=== PATIENT | male | born 1935 | race African-American/Black ===

== ENCOUNTER 2020-07-19 11:41 | Inpatient (IN) | payer MEDICARE, BC ==
[~2020-07-19] VITALS: Ht 167.6 cm; Wt 91.2 kg
[2020-07-19] MEDS ORDERED: HYDROCHLOROTH12.5 MG ORAL (15:38)
[2020-07-19] MEDS ORDERED: CELEBREX50 M1 ORAL (15:40)
[2020-07-19] MEDS ORDERED: LATANOPROST 0.7.5 ML OP (15:45)
[2020-07-19] MEDS ORDERED: METOPROLOL SUCC25 MG ORAL (15:47)
[2020-07-19 16:00] VITALS: BP 154/85
--- NOTE | 2020-07-19 17:32 | Diagnostic Imaging Report ---
EXAM: US Duplex Bilateral Lower Extremities Veins CLINICAL HISTORY: DVT TECHNIQUE: Real-time duplex ultrasound scan of the bilateral lower extremity veins integrating B-mode two-dimensional vascular structure, Doppler spectral analysis, color flow Doppler imaging and compression. COMPARISON: No relevant prior studies available. FINDINGS: Right deep veins: Unremarkable. No DVT in the right common femoral, femoral, proximal deep femoral or popliteal veins. The veins demonstrate normal color flow, are normally compressible, with normal phasic flow and/or augmentation response. Right superficial veins: Unremarkable. No thrombus in the visualized right great saphenous vein. Left deep veins: Unremarkable. No DVT in the left common femoral, femoral, proximal deep femoral or popliteal veins. The veins demonstrate normal color flow, are normally compressible, with normal phasic flow and/or augmentation response. Left superficial veins: Unremarkable. No thrombus in the visualized left great saphenous vein. Soft tissues: No acute findings. IMPRESSION: No DVT.
[2020-07-19 18:25] LABS: BASOPHILS % (AUTO) 3.4 % (0.0-2.0); EOSINOPHILS % (AUTO) 2.4 % (0.0-3.0); HEMATOCRIT 42.7 % (42.0-52.0); HEMOGLOBIN 13.5 G/DL (14.2-18.0); LYMPHOCYTES % (AUTO) 25.1 % (20.0-45.0); MEAN CORPUSCULAR VOLUME 94 FL (80-99); NEUTROPHILS % (AUTO) 51.2 % (45.0-75.0); PLATELET COUNT 167 K/UL (150-450); RED BLOOD COUNT 4.53 M/UL (4.70-6.10); RED CELL DISTRIBUTION WIDTH 14.7 % (11.6-14.8); WHITE BLOOD COUNT 6.2 K/UL (4.8-10.8)
[2020-07-19 18:37] LABS: ALANINE AMINOTRANSFERASE 30 U/L (12-78); ALBUMIN 3.3 G/DL (3.4-5.0); ALBUMIN/GLOBULIN RATIO 0.9 (1.0-2.7); ALKALINE PHOSPHATASE 68 U/L (46-116); ANION GAP 5 mmol/L (5-15); ASPARTATE AMINO TRANSFERASE 24 U/L (15-37); BILIRUBIN,TOTAL 0.5 MG/DL (0.2-1.0); BLOOD UREA NITROGEN 26 mg/dL (7-18); CALCIUM 9.5 MG/DL (8.5-10.1); CARBON DIOXIDE 30 MMOL/L (21-32); CHLORIDE 103 MMOL/L (98-107); CREATININE 1.2 MG/DL (0.55-1.30); POTASSIUM 3.8 MMOL/L (3.5-5.1); SODIUM 138 MMOL/L (136-145)
[2020-07-19 19:03] LABS: APPEARANCE,URINE SLIGHTLY CLOUDY; BILIRUBIN, URINE NEGATIVE (NEGATIVE); COLOR,URINE PALE YELLOW; GLUCOSE, URINE (UA) NEGATIVE (NEGATIVE); KETONES,URINE NEGATIVE (NEGATIVE); LEUKOCYTE ESTERASE ,URINE 1+ (NEGATIVE); NITRITE,URINE POSITIVE (NEGATIVE); PH,URINE 7 (4.5-8.0); PROTEIN,URINE 2+ (NEGATIVE); UROBILINOGEN,URINE NORMAL MG/DL (0.0-1.0)
[2020-07-19 20:00] VITALS: BP 158/95
[2020-07-19] MEDS: Tamsulosin 0.4mg cap ORAL SCH (21:48)
[2020-07-20] VITALS: BP 151/88
[2020-07-20 04:00] VITALS: BP 135/70
--- NOTE | 2020-07-20 05:14 | Consultation ---
DATE OF CONSULTATION: 07/19/2020 CARDIOLOGY CONSULTATION CONSULTING PHYSICIAN: Xavier Stevens M.D. REQUESTING PHYSICIAN: Amador Marin M.D. REASON: Lower extremity edema. HISTORY OF PRESENT ILLNESS: This 85-year-old male has had progressive swelling of his lower extremities. He has been on diuretics without improvement. He has had some shortness of breath, but not significant in his complaints. He has not had any chest pain. The patient was recently hospitalized at [facility]. He presented with lower extremity weakness, paraparesis, and that was felt to be due to his degenerative disk disease and neuropathy. While he did have an elevated MARLEN, there was no associated signs of rheumatic disease. He was discharged to a correction facility for rehabilitation. Previously, he resided at an assisted living. PAST MEDICAL HISTORY: Notable for hypertension, chronic venous insufficiency, prostate cancer with history of prostatectomy, thoracic and lumbosacral spine disease, paroxysmal atrial fibrillation, hypertensive heart disease, traumatic brain injury, subdural hematoma with status post evacuation. ALLERGIES: None. MEDICATIONS: Reviewed and reconciled. FAMILY HISTORY: Noncontributory. SOCIAL HISTORY: No record of smoking, alcohol, or substance abuse. REVIEW OF SYSTEMS: No fevers or chills. No joint swelling. Improved mobility since his recent hospitalization. No chest pain. No history of abnormal blood clotting. No change in bowel habits. He does have a history of prostate cancer. PHYSICAL EXAMINATION: VITAL SIGNS: Blood pressure 158/95, pulse 88, respirations 18, afebrile, room air oxygen saturation 94 to 97%. Symmetric weakness. No skin breakdown. NECK: Jugular venous pressure is slightly elevated. LUNGS: Diminished breath sounds. No wheezes or rales. CARDIAC: Regular rhythm and rate. Normal S1, S2 with no murmur. ABDOMEN: Soft and nontender. EXTREMITIES: With 2 to 3+ pitting edema bilaterally. LABORATORY AND DIAGNOSTIC DATA: Venous duplex scan negative for DVT. BUN 26, creatinine 1.2, potassium 3.8. Troponin 0. Natriuretic peptide 51. Albumin 3.3. White count 6.2, hemoglobin 13.5. Venous duplex scan was negative for DVT. IMPRESSION: 1. Lower extremity edema. 2. Venous insufficiency. 3. Acute on chronic diastolic congestive heart failure. 4. Chronic low natriuretic peptide, may be due to obesity syndrome. 5. Paroxysmal atrial fibrillation. 6. Hypertension with labile blood pressure. PLAN: 1. Diuresis. 2. DVT prophylaxis. 3. Optimize anti-failure regimen. 4. Natriuretic peptide will not be useful as a marker in this patient's management. 5. We will follow. Xavier Stevens M.D. DR: LEELA JOB#: [id number] CC:
[2020-07-20 08:00] VITALS: BP 136/82
[2020-07-20 08:22] LABS: ALANINE AMINOTRANSFERASE 27 U/L (12-78); ALBUMIN 3.1 G/DL (3.4-5.0); ALBUMIN/GLOBULIN RATIO 0.7 (1.0-2.7); ALKALINE PHOSPHATASE 55 U/L (46-116); ANION GAP 8 mmol/L (5-15); ASPARTATE AMINO TRANSFERASE 26 U/L (15-37); BILIRUBIN,TOTAL 0.6 MG/DL (0.2-1.0); BLOOD UREA NITROGEN 20 mg/dL (7-18); CALCIUM 8.8 MG/DL (8.5-10.1); CARBON DIOXIDE 27 MMOL/L (21-32); CHLORIDE 106 MMOL/L (98-107); CREATININE 1.2 MG/DL (0.55-1.30); POTASSIUM 3.8 MMOL/L (3.5-5.1); SODIUM 141 MMOL/L (136-145)
[2020-07-20] MEDS: Metoprolol Succinate XL 25mg tab ORAL SCH (08:23)
[2020-07-20] MEDS: Aspirin EC 81mg tab ORAL SCH (08:23)
--- NOTE | 2020-07-20 09:20 | Diagnostic Imaging Report ---
EXAM: XR Chest, 1 View CLINICAL HISTORY: COUGH TECHNIQUE: Frontal view of the chest. COMPARISON: No relevant prior studies available. FINDINGS: Lungs: Unremarkable. The lungs appear clear. No focal consolidation. Pleural space: Unremarkable. The costophrenic angles are sharp. No visible pneumothorax. Heart: Cardiac silhouette and ascending aorta appear enlarged, however, may be magnified by portable AP exam technique. Mediastinum: Unremarkable. Bones/joints: Partial visualization of spinal fixation hardware in the cervical spine and separate posterior fixation hardware extending from the lower thoracic spine through the visualized lumbar spine. IMPRESSION: 1. The lungs appear clear. 2. Cardiac silhouette and ascending aorta appear enlarged, however they may be magnified by portable AP exam technique.
[2020-07-20 12:00] VITALS: BP 132/78
--- NOTE | 2020-07-20 12:30 | History and Physical Report ---
DATE OF ADMISSION: 07/19/2020 CHIEF COMPLAINT: CHF and lower extremity edema. HISTORY OF PRESENT ILLNESS: The patient is a pleasant 85-year-old male, well known to me. He has a history of hypertension, BPH, urinary incontinence, chronic kidney disease, who presented with complaints of worsening lower extremity edema. According to the patient's manager of program, he has not been completely compliant with his medications as well as low-salt diet and leg elevation. He had been taking his oral diuretics recently though and had no improvement in his edema and is therefore admitted for further evaluation and care. PAST MEDICAL HISTORY: As above. PAST SURGICAL HISTORY: Includes history of prostatectomy. CURRENT MEDICATIONS: Reconciled and reviewed. ALLERGIES: None. FAMILY HISTORY: None. SOCIAL HISTORY: Negative for tobacco, ethanol, or drugs. REVIEW OF SYSTEMS: GENERAL: No fevers or chills. HEENT: No headaches or visual changes. CARDIOPULMONARY: No chest pain or shortness of breath. GASTROINTESTINAL: No nausea or vomiting. GENITOURINARY: No urgency or frequency. MUSCULOSKELETAL: Positive for lower extremity edema, but no joint pain. NEUROLOGIC: No evidence of seizures. PHYSICAL EXAMINATION: VITAL SIGNS: Temperature 98 degrees, blood pressure 130/76, pulse 80, respirations 20. GENERAL: The patient is well-developed, no apparent distress. HEENT: Head is normocephalic and atraumatic. NECK: Supple. HEART: Regular rate and rhythm. LUNGS: Clear. ABDOMEN: Soft, nontender, nondistended. EXTREMITIES: edema. LABORATORY DATA: Creatinine is 1.2. Venous duplex was negative. Troponin was negative. White count was 6, hemoglobin 13. ASSESSMENT: This is a pleasant male with a history of hypertension, prostatectomy, venous insufficiency, admitted with worsening lower extremity edema secondary to volume overload. PLAN: IV diuretic therapy. Cardiology consultation. Low-salt diet. Leg elevation. Monitor renal function and electrolytes. We will check a bladder ultrasound. Amador Marin M.D. DR: BOYD JOB#: [id number] CC:
[2020-07-20 16:00] VITALS: BP 114/83
[2020-07-20 20:00] VITALS: BP 147/86
[2020-07-20] MEDS: Tamsulosin 0.4mg cap ORAL SCH (21:05)
[2020-07-20] MEDS: Latanoprost 0.005% Opth 2.5ml Soln BOTH EYES SCH (21:05)
[2020-07-20] MEDS: Acetaminophen 500mg (ES) tab ORAL PRN (21:06)
--- NOTE | 2020-07-20 21:25 | Cardiology Progress Note ---
Subjective DATE OF SERVICE: Jul 20, 2020 Still with leg swelling. Not SOB today, but hasn't been OOB. On IV diuretic rx BP parameters have stabilized. Objective Last 24 Hour Vital Signs Date Time Temp Pulse Resp B/P (MAP) Pulse Ox O2 Delivery O2 Flow Rate FiO2 07/20/20 20:00 98.1 87 20 147/86 (106) 99 07/20/20 16:00 98.9 98 20 114/83 (93) 93 07/20/20 12:00 98.0 82 20 132/78 (96) 95 07/20/20 09:00 Room Air 07/20/20 08:23 104 136/82 07/20/20 08:00 98.0 104 20 136/82 (100) 93 07/20/20 04:00 98.4 85 20 135/70 (91) 96 07/20/20 00:00 98.5 86 18 151/88 (109) 94 ROS: unchanged from my evaluation on 07/19/20 HEENT: normal ENT inspection RHYTHM: NSR, ST LUNGS: lungs clear bilaterally, diminished breath sounds CARDIAC: systolic murmur - 1/6 systolic at LLSB, rapid rate, gallop/S4 ABDOMEN: normal bowel sounds, non tender, hepatomegaly EXTREMITIES: moderate edema, pitting edema, +2 edema Laboratory Tests Test 07/20/20 07:00 Sodium Level 141 MMOL/L (136-145) Potassium Level 3.8 MMOL/L (3.5-5.1) Chloride Level 106 MMOL/L (98-107) Carbon Dioxide Level 27 MMOL/L (21-32) Anion Gap 8 mmol/L (5-15) Blood Urea Nitrogen 20 mg/dL (7-18) H Creatinine 1.2 MG/DL (0.55-1.30) Estimat Glomerular Filtration Rate > 60 mL/min (>60) Glucose Level 122 MG/DL (74-106) H Calcium Level 8.8 MG/DL (8.5-10.1) Total Bilirubin 0.6 MG/DL (0.2-1.0) Aspartate Amino Transf (AST/SGOT) 26 U/L (15-37) Alanine Aminotransferase (ALT/SGPT) 27 U/L (12-78) Alkaline Phosphatase 55 U/L (46-116) Total Protein 7.4 G/DL (6.4-8.2) Albumin 3.1 G/DL (3.4-5.0) L Globulin 4.3 g/dL Albumin/Globulin Ratio 0.7 (1.0-2.7) L Thyroid Stimulating Hormone (TSH) 1.337 uiU/mL (0.358-3.740) Microbiology Date/Time Source Procedure Growth Status 07/19/20 18:25 Nasopharynx SARS-CoV-2 RdRp Gene Assay - Final Complete Assessment/Plan Assessment/Plan Venous Insuff with dependent edema Ac/chr diastolic CHF Degenerative valve disease Hypertension/HHD, now with improved control Hx traumatic subdural hematoma with evac. Hx prostate CA IV diuresis Titrate antiHTN meds Compression stockings Salt restriction Consider CT abdomen to assess for liver disease contributing to edema DVT prophyl Xavier Stevens MD Jul 20, 2020 21:25
[2020-07-21] VITALS: BP 144/93
[2020-07-21 04:00] VITALS: BP 144/94
[2020-07-21 08:00] VITALS: BP 113/78
[2020-07-21] MEDS: Aspirin EC 81mg tab ORAL SCH (08:28)
[2020-07-21] MEDS: Metoprolol Succinate XL 25mg tab ORAL SCH (08:28)
--- NOTE | 2020-07-21 11:16 | General Progress Note ---
Subjective ROS Limited/Unobtainable: No Constitutional: Reports: malaise, weakness HEENT: Reports: no symptoms Cardiovascular: Reports: edema Respiratory: Reports: no symptoms Gastrointestinal/Abdominal: Reports: no symptoms Genitourinary: Reports: no symptoms Neurologic/Psychiatric: Reports: other - unsteady gait Hematologic/Lymphatic: Reports: no symptoms Allergies: Coded Allergies: No Known Allergies (Unverified , 07/19/20) All Systems: reviewed and negative except above Subjective no new complaints. still "unable to walk." very unsteady gait. no fever or chills. LE edema much improved. no sob or orthopnea. Objective Last 24 Hour Vital Signs Date Time Temp Pulse Resp B/P (MAP) Pulse Ox O2 Delivery O2 Flow Rate FiO2 07/21/20 09:00 Room Air 07/21/20 08:28 107 113/78 07/21/20 08:00 98.2 107 19 113/78 (90) 97 07/21/20 04:00 98.1 100 20 144/94 (111) 94 07/21/20 00:00 98.1 83 20 144/93 (110) 94 07/20/20 21:00 Room Air 07/20/20 20:00 98.1 87 20 147/86 (106) 99 07/20/20 16:00 98.9 98 20 114/83 (93) 93 07/20/20 12:00 98.0 82 20 132/78 (96) 95 Intake and Output 07/20/20 07/21/20 18:59 06:59 Intake Total 150 ml 400 ml Output Total 100 ml Balance 50 ml 400 ml Intake Oral 150 ml 400 ml Output Urine Total 100 ml # Voids 2 5 # Bowel Movements 1 Height (Feet): 5 Height (Inches): 6.00 Weight (Pounds): 207 General Appearance: WD/WN, alert EENT: normal ENT inspection Neck: non-tender, normal alignment, supple Cardiovascular: normal rate, regular rhythm Respiratory/Chest: chest wall non-tender, lungs clear, normal breath sounds, no respiratory distress, no accessory muscle use Abdomen: normal bowel sounds, non tender, soft, no organomegaly Edema: no edema noted Arm (L), no edema noted Arm (R), no edema noted Leg (L), no edema noted Leg (R) Neurologic: case management social worker II-XII grossly normal, alert, oriented x 3 Skin: normal pigmentation Assessment/Plan Problem List: (1) Gait instability ICD Codes: R26.81 - Unsteadiness on feet SNOMED: 10415006 (2) CVA (cerebral vascular accident) ICD Codes: I63.9 - Cerebral infarction, unspecified SNOMED: 665444173 (3) Incontinence ICD Codes: R32 - Unspecified urinary incontinence SNOMED: 22597813 (4) CHF (congestive heart failure) ICD Codes: I50.9 - Heart failure, unspecified SNOMED: 17884295 Status: stable Assessment/Plan: po lasix pt ot eval pending ct brain r/o cva CT spine r/o spine lesion BP rx monitor labs leg elevation Amador Marin MD Jul 21, 2020 11:16
[2020-07-21 12:00] VITALS: BP 117/79
[2020-07-21 16:00] VITALS: BP 132/87
--- NOTE | 2020-07-21 16:56 | Cardiology Progress Note ---
Subjective DATE OF SERVICE: Jul 21, 2020 Leg swelling better. Remains unable to ambulate safely. Not SOB today, but hasn't been OOB. On IV diuretic rx BP parameters have stabilized. Urine culture positive; final results pending Objective Last 24 Hour Vital Signs Date Time Temp Pulse Resp B/P (MAP) Pulse Ox O2 Delivery O2 Flow Rate FiO2 07/21/20 16:00 97.5 80 17 132/87 (102) 99 07/21/20 12:00 97.5 87 19 117/79 (92) 96 07/21/20 09:00 Room Air 07/21/20 08:28 107 113/78 07/21/20 08:00 98.2 107 19 113/78 (90) 97 07/21/20 04:00 98.1 100 20 144/94 (111) 94 07/21/20 00:00 98.1 83 20 144/93 (110) 94 07/20/20 21:00 Room Air 07/20/20 20:00 98.1 87 20 147/86 (106) 99 ROS: unchanged from my evaluation on 07/19/20 HEENT: normal ENT inspection RHYTHM: NSR, ST LUNGS: lungs clear bilaterally, diminished breath sounds CARDIAC: systolic murmur - 1/6 systolic at LLSB, rapid rate, gallop/S4 ABDOMEN: normal bowel sounds, non tender, hepatomegaly EXTREMITIES: moderate edema, pitting edema, +1 edema Microbiology Date/Time Source Procedure Growth Status 07/19/20 18:25 Nasopharynx SARS-CoV-2 RdRp Gene Assay - Final Complete 07/19/20 18:15 Rectum VRE Culture - Final NO VANCOMYCIN RESISTANT ENTEROCOCCUS ... Complete 07/19/20 18:15 Urine,Clean Catch Urine Culture - Preliminary Gram Negative Gavin Resulted 07/19/20 18:15 Nasal Nares MRSA Culture - Final NO METHICILLIN RESISTANT STAPH AUREUS... Complete Assessment/Plan Assessment/Plan 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 Hx prostate CA UTI Gait abnormality Maintenance dose diuresis Titrate antiHTN meds Compression stockings Salt restriction Consider CT abdomen to assess for liver disease contributing to edema DVT prophyl Antimicrobial therap initiated Neuro Xavier Campa MD Jul 21, 2020 16:56
[2020-07-21 20:00] VITALS: BP 126/74
[2020-07-21] MEDS: Latanoprost 0.005% Opth 2.5ml Soln BOTH EYES SCH (21:23)
[2020-07-21] MEDS: Tamsulosin 0.4mg cap ORAL SCH (21:23)
[2020-07-21] MEDS: Piperacillin/Tazobactam 3.375 GM in NS 110 ML IVPB SCH (21:23)
[2020-07-22] VITALS: BP 122/68
[2020-07-22 04:00] VITALS: BP 130/72
[2020-07-22] MEDS: Piperacillin/Tazobactam 3.375 GM in NS 110 ML IVPB SCH ×3 (05:50→21:45)
[2020-07-22 07:17] LABS: BASOPHILS % (AUTO) 2.1 % (0.0-2.0); EOSINOPHILS % (AUTO) 3.6 % (0.0-3.0); HEMATOCRIT 41.7 % (42.0-52.0); HEMOGLOBIN 13.8 G/DL (14.2-18.0); LYMPHOCYTES % (AUTO) 25.9 % (20.0-45.0); MEAN CORPUSCULAR VOLUME 89 FL (80-99); NEUTROPHILS % (AUTO) 55.4 % (45.0-75.0); PLATELET COUNT 180 K/UL (150-450); RED CELL DISTRIBUTION WIDTH 13.4 % (11.6-14.8); WHITE BLOOD COUNT 6.8 K/UL (4.8-10.8)
--- NOTE | 2020-07-22 07:25 | General Progress Note ---
Subjective ROS Limited/Unobtainable: No Constitutional: Reports: malaise, weakness HEENT: Reports: no symptoms Cardiovascular: Reports: edema Respiratory: Reports: no symptoms Gastrointestinal/Abdominal: Reports: no symptoms Genitourinary: Reports: no symptoms Neurologic/Psychiatric: Reports: no symptoms Endocrine: Reports: no symptoms Hematologic/Lymphatic: Reports: no symptoms Allergies: Coded Allergies: No Known Allergies (Unverified , 07/19/20) All Systems: reviewed and negative except above Subjective no new complaints. still "unable to walk." very unsteady gait. no fever or chills. LE edema much improved. no sob or orthopnea. Ucx with gnr. on iv zosyn Objective Last 24 Hour Vital Signs Date Time Temp Pulse Resp B/P (MAP) Pulse Ox O2 Delivery O2 Flow Rate FiO2 07/22/20 04:00 97.9 77 16 130/72 (91) 96 07/22/20 00:00 97.7 72 16 122/68 (86) 95 07/21/20 21:00 Room Air 07/21/20 20:00 97.5 80 18 126/74 (91) 95 07/21/20 16:00 97.5 80 17 132/87 (102) 99 07/21/20 12:00 97.5 87 19 117/79 (92) 96 07/21/20 09:00 Room Air 07/21/20 08:28 107 113/78 07/21/20 08:00 98.2 107 19 113/78 (90) 97 Intake and Output 07/21/20 07/22/20 19:00 07:00 Intake Total 1000 ml 442.56 ml Output Total 1800 ml 700 ml Balance -800 ml -257.44 ml Intake Oral 360 ml IV Total 82.56 ml Other 1000 ml Output Urine Total 1800 ml 700 ml # Voids 1 Laboratory Tests 07/22/20 06:00: White Blood Count 6.8, Red Blood Count 4.70, Hemoglobin 13.8L, Hematocrit 41.7L, Mean Corpuscular Volume 89, Mean Corpuscular Hemoglobin 29.4, Mean Corpuscular Hemoglobin Concent 33.1, Red Cell Distribution Width 13.4, Platelet Count 180, Mean Platelet Volume 6.2L, Neutrophils (%) (Auto) 55.4, Lymphocytes (%) (Auto) 25.9, Monocytes (%) (Auto) 13.0H, Eosinophils (%) (Auto) 3.6H, Basophils (%) (Auto) 2.1H, Sodium Level [Pending], Potassium Level [Pending], Chloride Level [Pending], Carbon Dioxide Level [Pending], Blood Urea Nitrogen [Pending], Creatinine [Pending], Estimat Glomerular Filtration Rate [Pending], Glucose Level [Pending], Calcium Level [Pending], Magnesium Level [Pending], Total Bilirubin [Pending], Aspartate Amino Transf (AST/SGOT) [Pending], Alanine Aminotransferase (ALT/SGPT) [Pending], Alkaline Phosphatase [Pending], Total Protein [Pending], Albumin [Pending], Globulin [Pending] Height (Feet): 5 Height (Inches): 6.00 Weight (Pounds): 207 Assessment/Plan Problem List: (1) Gait instability ICD Codes: R26.81 - Unsteadiness on feet SNOMED: 71054309 (2) CVA (cerebral vascular accident) ICD Codes: I63.9 - Cerebral infarction, unspecified SNOMED: 250848838 (3) Incontinence ICD Codes: R32 - Unspecified urinary incontinence SNOMED: 46972548 (4) CHF (congestive heart failure) ICD Codes: I50.9 - Heart failure, unspecified SNOMED: 10446749 Status: stable Assessment/Plan: po lasix pt ot eval pending ct brain r/o cva CT spine r/o spine lesion iv abx for GNR uti flomax BP rx monitor labs leg elevation Amador Marin MD Jul 22, 2020 07:25
[2020-07-22 07:52] LABS: ALANINE AMINOTRANSFERASE 23 U/L (12-78); ALBUMIN 2.9 G/DL (3.4-5.0); ALBUMIN/GLOBULIN RATIO 0.6 (1.0-2.7); ALKALINE PHOSPHATASE 56 U/L (46-116); ANION GAP 8 mmol/L (5-15); ASPARTATE AMINO TRANSFERASE 22 U/L (15-37); BILIRUBIN,TOTAL 0.6 MG/DL (0.2-1.0); BLOOD UREA NITROGEN 23 mg/dL (7-18); CALCIUM 8.9 MG/DL (8.5-10.1); CARBON DIOXIDE 28 MMOL/L (21-32); CHLORIDE 105 MMOL/L (98-107); CREATININE 1.2 MG/DL (0.55-1.30); POTASSIUM 3.9 MMOL/L (3.5-5.1); SODIUM 141 MMOL/L (136-145)
[2020-07-22 08:00] VITALS: BP 110/72
[2020-07-22] MEDS: Metoprolol Succinate XL 25mg tab ORAL SCH (09:25)
[2020-07-22] MEDS: Aspirin EC 81mg tab ORAL SCH (09:25)
[2020-07-22 12:00] VITALS: BP 128/80
[2020-07-22 16:00] VITALS: BP 122/74
--- NOTE | 2020-07-22 16:57 | Diagnostic Imaging Report ---
Indications: Headache Technique: Spiral acquisitions obtained through the brain. Angled axial and coronal 5 x 5 mm slices were reconstructed. Total dose length product 1045 mGycm. CTDI vol(s) 53 mGy. Dose reduction achieved using automated exposure control Comparison: None. Findings: There is evidence of prior right convexity craniotomy. No acute intracranial hemorrhage or edema. No mass effect or midline shift. There is age-related enlargement of the ventricles and extra axial CSF spaces. There is some periventricular deep white matter low-attenuation, consistent with chronic microvascular ischemic change. Low-attenuation in the right side of the chidi is probably artifactual but small lacunar infarct not excludable. There is evidence of prior bilateral cataract surgery. The visualized sinuses are clear. The mastoids are clear. Impression: Negative for acute intracranial bleed or mass effect Questionable old right pontine lacunar infarct, versus more likely artifact Chronic and age-related changes, as described Prior right convexity craniotomy The CT scanner at [facility] is accredited by the [employer] and the scans are performed using protocols designed to limit radiation exposure to as low as reasonably achievable to attain images of sufficient resolution adequate for diagnostic evaluation.
--- NOTE | 2020-07-22 17:03 | Diagnostic Imaging Report ---
Indication: Back pain Technique: Spiral acquisitions obtained through the thoracic spine. No IV contrast utilized. Multiplanar reconstructions were generated. Total dose length product 599 mGycm. CTDIvol(s) 14 mGy. Dose reduction achieved using automated exposure control Comparison: none Findings: Fusion hardware is seen extending from T2 into the cervical spine. There is evidence of prior T1 laminectomy, as well as laminectomies of the cervical spine. The cervical and upper thoracic disc spaces appear ankylosed. The hardware appears well situated. Fusion hardware is also seen involving T10-12 and extending into the lumbar spine. There is ankylosis of the T11-12 disc. The T10-11 disc does not appear to be fused. There is extensive posterior bone grafting noted. The bony alignment is normal. There is multilevel degenerative disc narrowing. No acute fractures. No dislocations. There are degenerative changes of multiple costothoracic junctions.. There are multilevel degenerative changes of the included cervical spine, with multilevel neural foraminal stenoses. At T1-2, there is mild right and moderate left neural foraminal stenosis. At T2-3, there is mild to moderate right, severe left neural foraminal stenosis. At T3-4, there is mild left neural foraminal stenosis. At the remaining disc levels, no significant disc bulge or protrusion, spinal stenosis, or neural foraminal narrowing. The included extraspinal soft tissues are unremarkable. Impression: No acute bony trauma Postsurgical changes, as described Degenerative changes as described The CT scanner at [facility] is accredited by the [employer] and the scans are performed using protocols designed to limit radiation exposure to as low as reasonably achievable to attain images of sufficient resolution adequate for diagnostic evaluation.
--- NOTE | 2020-07-22 17:10 | Diagnostic Imaging Report ---
Indications: Back pain Technique: Spiral acquisitions obtained through the lumbar spine. Multiplanar reconstructions were generated. No IV contrast utilized. Total dose length product 550 mGycm. CTDIvol(s) 16 mGy. Dose reduction achieved using automated exposure control Comparison: none Findings: There is fusion hardware extending from T10 through S1. Patient is status post laminectomies of L1-S1. There is bone graft material fusing the posterior elements of T10-L1. The T11-12 disc is ankylosed. The L2-3 and L3-4 discs are ankylosed. The hardware appears well situated. There is a disc spacer within the L4-5 disc. However, the disc is not ankylosed, and there is severe endplate irregularity on both sides of the disc. What may be a disc spacer is seen in the L4-5 disc. Similarly, the disc is not ankylosed and there is extensive irregularity of the inferior L5 and superior S1 endplates. There is considerable degenerative remodeling of the L5 vertebral body as well as considerable surrounding proliferative change. There is grade 2 spondylolisthesis of L5 on S1. The remaining bony alignment is normal. Other than the degenerative remodeling of the L5 vertebral body, the vertebral body heights are preserved. No definite acute fractures. No dislocations. There is mild bilateral neural foraminal stenosis at T11-12. No significant disc bulge or protrusion, spinal stenosis, or neural foraminal stenosis seen in the lumbar spine. The included extraspinal soft tissues are unremarkable. Impression: Extensive postsurgical changes, as detailed on a level by level basis above Extensive degenerative changes, as detailed above Marked endplate irregularities at L4-5 and L5-S1. This is most likely due to severe degenerative change. However, the possibility of infectious discitis/spondylitis should also be considered. Consider contrast MRI for better characterization if clinically indicated The CT scanner at [facility] is accredited by the [employer] and the scans are performed using protocols designed to limit radiation exposure to as low as reasonably achievable to attain images of sufficient resolution adequate for diagnostic evaluation.
[2020-07-22] MEDS ORDERED: LATANOPROST2.5 ML BOTH EYES (19:03)
[2020-07-22] MEDS ORDERED: CELEBREX100 MG ORAL (19:03)
[2020-07-22 20:00] VITALS: BP 127/84
[2020-07-22] MEDS: Tamsulosin 0.4mg cap ORAL SCH (21:45)
[2020-07-22] MEDS: Latanoprost 0.005% Opth 2.5ml Soln BOTH EYES SCH (21:45)
[2020-07-23] VITALS: BP 124/80
--- NOTE | 2020-07-23 02:19 | Cardiology Progress Note ---
Subjective DATE OF SERVICE: Jul 22, 2020 Leg swelling better. Remains unable to ambulate safely. Not SOB today. On IV diuretic rx BP parameters have stabilized. Urine culture positive; final results pending, and IV abx satrted yesterday. CT scans revealed post surgical changes; cannot exclude disciitis. Objective Last 24 Hour Vital Signs Date Time Temp Pulse Resp B/P (MAP) Pulse Ox O2 Delivery O2 Flow Rate FiO2 07/23/20 00:00 98.6 80 16 124/80 (95) 96 07/22/20 20:00 99.0 77 17 127/84 (98) 96 07/22/20 18:32 Room Air 07/22/20 16:00 97.2 81 17 122/74 (90) 92 07/22/20 12:00 98.1 68 18 128/80 (96) 97 07/22/20 09:25 83 110/72 07/22/20 09:00 Room Air 07/22/20 08:00 98.0 83 18 110/72 (85) 94 07/22/20 04:00 97.9 77 16 130/72 (91) 96 ROS: unchanged from my evaluation on 07/19/20 HEENT: normal ENT inspection RHYTHM: NSR, ST LUNGS: lungs clear bilaterally, diminished breath sounds CARDIAC: systolic murmur - 1/6 systolic at LLSB, rapid rate, gallop/S4 ABDOMEN: normal bowel sounds, non tender, hepatomegaly EXTREMITIES: moderate edema, pitting edema, +1 edema Laboratory Tests Test 07/22/20 06:00 White Blood Count 6.8 K/UL (4.8-10.8) Red Blood Count 4.70 M/UL (4.70-6.10) Hemoglobin 13.8 G/DL (14.2-18.0) L Hematocrit 41.7 % (42.0-52.0) L Mean Corpuscular Volume 89 FL (80-99) Mean Corpuscular Hemoglobin 29.4 PG (27.0-31.0) Mean Corpuscular Hemoglobin Concent 33.1 G/DL (32.0-36.0) Red Cell Distribution Width 13.4 % (11.6-14.8) Platelet Count 180 K/UL (150-450) Mean Platelet Volume 6.2 FL (6.5-10.1) L Neutrophils (%) (Auto) 55.4 % (45.0-75.0) Lymphocytes (%) (Auto) 25.9 % (20.0-45.0) Monocytes (%) (Auto) 13.0 % (1.0-10.0) H Eosinophils (%) (Auto) 3.6 % (0.0-3.0) H Basophils (%) (Auto) 2.1 % (0.0-2.0) H Sodium Level 141 MMOL/L (136-145) Potassium Level 3.9 MMOL/L (3.5-5.1) Chloride Level 105 MMOL/L (98-107) Carbon Dioxide Level 28 MMOL/L (21-32) Anion Gap 8 mmol/L (5-15) Blood Urea Nitrogen 23 mg/dL (7-18) H Creatinine 1.2 MG/DL (0.55-1.30) Estimat Glomerular Filtration Rate > 60 mL/min (>60) Glucose Level 113 MG/DL (74-106) H Calcium Level 8.9 MG/DL (8.5-10.1) Magnesium Level 2.3 MG/DL (1.8-2.4) Total Bilirubin 0.6 MG/DL (0.2-1.0) Aspartate Amino Transf (AST/SGOT) 22 U/L (15-37) Alanine Aminotransferase (ALT/SGPT) 23 U/L (12-78) Alkaline Phosphatase 56 U/L (46-116) Total Protein 7.5 G/DL (6.4-8.2) Albumin 2.9 G/DL (3.4-5.0) L Globulin 4.6 g/dL Albumin/Globulin Ratio 0.6 (1.0-2.7) L Assessment/Plan Assessment/Plan 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 Maintenance dose diuresis Titrate antiHTN meds Compression stockings Salt restriction DVT prophyl Antimicrobial therap initiated - await final cultures Mobilize Xavier Stevens MD Jul 23, 2020 02:19
[2020-07-23 04:00] VITALS: BP 130/82
[2020-07-23] MEDS: Piperacillin/Tazobactam 3.375 GM in NS 110 ML IVPB SCH ×3 (05:14→21:19)
[2020-07-23 08:00] VITALS: BP 130/92
[2020-07-23] MEDS: Aspirin EC 81mg tab ORAL SCH (08:37)
[2020-07-23] MEDS: Metoprolol Succinate XL 25mg tab ORAL SCH (08:37)
[2020-07-23 12:00] VITALS: BP 111/67
[2020-07-23 16:00] VITALS: BP 121/80
--- NOTE | 2020-07-23 17:19 | General Progress Note ---
Subjective ROS Limited/Unobtainable: No Constitutional: Reports: no symptoms HEENT: Reports: no symptoms Cardiovascular: Reports: edema Respiratory: Reports: no symptoms Gastrointestinal/Abdominal: Reports: no symptoms Genitourinary: Reports: incontinence Neurologic/Psychiatric: Reports: weakness Endocrine: Reports: no symptoms Hematologic/Lymphatic: Reports: no symptoms Allergies: Coded Allergies: No Known Allergies (Unverified , 07/19/20) All Systems: reviewed and negative except above Subjective no new complaints. still "unable to walk." very unsteady gait. no fever or chills. LE edema much improved. no sob or orthopnea. Ucx with proteus on iv zosyn. Objective Last 24 Hour Vital Signs Date Time Temp Pulse Resp B/P (MAP) Pulse Ox O2 Delivery O2 Flow Rate FiO2 07/23/20 16:00 97.6 70 19 121/80 (94) 96 07/23/20 12:00 96.7 80 19 111/67 (82) 96 07/23/20 09:00 Room Air 07/23/20 08:37 80 130/92 07/23/20 08:00 97.7 80 20 130/92 (105) 96 07/23/20 04:00 98.4 72 17 130/82 (98) 96 07/23/20 00:00 98.6 80 16 124/80 (95) 96 07/22/20 20:00 99.0 77 17 127/84 (98) 96 07/22/20 18:32 Room Air Intake and Output 07/22/20 07/23/20 18:59 06:59 Intake Total 937.5 ml 360 ml Output Total 700 ml Balance 937.5 ml -340 ml Intake Oral 360 ml IV Total 137.5 ml Other 800 ml Output Urine Total 700 ml Bladder Scan Volume Amount 24-84 # Voids 1 Height (Feet): 5 Height (Inches): 6.00 Weight (Pounds): 207 Assessment/Plan Problem List: (1) Gait instability ICD Codes: R26.81 - Unsteadiness on feet SNOMED: 32608468 (2) CVA (cerebral vascular accident) ICD Codes: I63.9 - Cerebral infarction, unspecified SNOMED: 382195815 (3) Incontinence ICD Codes: R32 - Unspecified urinary incontinence SNOMED: 63289136 (4) CHF (congestive heart failure) ICD Codes: I50.9 - Heart failure, unspecified SNOMED: 46687737 Status: stable Assessment/Plan: po lasix pt ot eval ct brain- nothing acute CT spine- +fusion iv abx for uti flomax BP rx monitor labs leg elevation dc planning to assisted living. Pt refusing snf. await PT/OT Amador Marin MD Jul 23, 2020 17:19
[2020-07-23 20:00] VITALS: BP 147/79
[2020-07-23] MEDS: Tamsulosin 0.4mg cap ORAL SCH (21:18)
[2020-07-23] MEDS: Acetaminophen 500mg (ES) tab ORAL PRN (21:19)
[2020-07-23] MEDS: Latanoprost 0.005% Opth 2.5ml Soln BOTH EYES SCH (21:19)
--- NOTE | 2020-07-23 22:34 | Cardiology Progress Note ---
Subjective DATE OF SERVICE: Jul 23, 2020 Leg swelling better. Remains unable to ambulate safely. Not SOB today. On IV diuretic rx BP parameters have stabilized. Urine culture positive for widely resistant proteus strain; patient already was on Zosyn. CT scans revealed post surgical changes; cannot exclude disciitis. Objective Last 24 Hour Vital Signs Date Time Temp Pulse Resp B/P (MAP) Pulse Ox O2 Delivery O2 Flow Rate FiO2 07/23/20 21:49 99.8 07/23/20 21:00 Room Air 07/23/20 20:00 99.8 82 20 147/79 (101) 96 07/23/20 16:00 97.6 70 19 121/80 (94) 96 07/23/20 12:00 96.7 80 19 111/67 (82) 96 07/23/20 09:00 Room Air 07/23/20 08:37 80 130/92 07/23/20 08:00 97.7 80 20 130/92 (105) 96 07/23/20 04:00 98.4 72 17 130/82 (98) 96 07/23/20 00:00 98.6 80 16 124/80 (95) 96 ROS: unchanged from my evaluation on 07/19/20 HEENT: normal ENT inspection RHYTHM: NSR, ST LUNGS: lungs clear bilaterally, diminished breath sounds CARDIAC: systolic murmur - 1/6 systolic at LLSB, rapid rate, gallop/S4 ABDOMEN: normal bowel sounds, non tender, hepatomegaly EXTREMITIES: moderate edema, pitting edema, +1 edema Assessment/Plan Assessment/Plan 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 Maintenance dose oral diuretics Titrate antiHTN meds as needed Compression stockings Salt restriction DVT prophyl Antimicrobial therap on-going. Mobilize Xavier Stevens MD Jul 23, 2020 22:34
[2020-07-24] VITALS: BP_SYST 154; BP_SYST 167; BP_DIAS 75
[2020-07-24] MEDS: HydrALAZINE 25mg tab ORAL PRN (00:02)
[2020-07-24 04:00] VITALS: BP 146/76
[2020-07-24] MEDS: Piperacillin/Tazobactam 3.375 GM in NS 110 ML IVPB SCH ×3 (05:07→21:12)
[2020-07-24 08:00] VITALS: BP 131/61
[2020-07-24] MEDS: Acetaminophen 500mg (ES) tab ORAL PRN (08:37)
[2020-07-24] MEDS: Aspirin EC 81mg tab ORAL SCH (08:38)
[2020-07-24] MEDS: Metoprolol Succinate XL 25mg tab ORAL SCH (08:38)
[2020-07-24 12:00] VITALS: BP 126/76
[2020-07-24 16:00] VITALS: BP 140/76
[2020-07-24] MEDS: Latanoprost 0.005% Opth 2.5ml Soln BOTH EYES SCH (19:59)
[2020-07-24] MEDS: Tamsulosin 0.4mg cap ORAL SCH (19:59)
[2020-07-24 20:00] VITALS: BP 151/94
--- NOTE | 2020-07-24 21:32 | General Progress Note ---
Subjective ROS Limited/Unobtainable: No Constitutional: Reports: malaise, weakness HEENT: Reports: no symptoms Cardiovascular: Reports: edema Respiratory: Reports: no symptoms Gastrointestinal/Abdominal: Reports: no symptoms Genitourinary: Reports: no symptoms Neurologic/Psychiatric: Reports: pre-existing deficit Endocrine: Reports: no symptoms Hematologic/Lymphatic: Reports: no symptoms Allergies: Coded Allergies: No Known Allergies (Unverified , 07/19/20) All Systems: reviewed and negative except above Subjective no events. no new complaints. still unsteady with poor gait. therapy recommending additional therapy. on iv abx for ESBL uti. offered snf- pt refuses. Objective Last 24 Hour Vital Signs Date Time Temp Pulse Resp B/P (MAP) Pulse Ox O2 Delivery O2 Flow Rate FiO2 07/24/20 16:00 98.1 64 19 140/76 (97) 97 07/24/20 12:00 97.8 76 17 126/76 (93) 95 07/24/20 09:00 Room Air 07/24/20 08:38 71 131/61 07/24/20 08:00 97.6 71 20 131/61 (84) 95 07/24/20 04:00 97.7 80 19 146/76 (99) 96 07/24/20 00:02 165/78 07/24/20 00:00 98.1 78 20 167/75 (105) 94 07/23/20 21:49 99.8 Intake and Output 07/23/20 07/24/20 19:00 07:00 Intake Total 950 ml Output Total 700 ml Balance 950 ml -700 ml Intake Oral 950 ml Output Urine Total 700 ml Bladder Scan Volume Amount 50-39 22-82 # Bowel Movements 2 Height (Feet): 5 Height (Inches): 6.00 Weight (Pounds): 207 General Appearance: WD/WN, alert EENT: normal ENT inspection Neck: non-tender, normal alignment Cardiovascular: normal peripheral pulses, normal rate Respiratory/Chest: chest wall non-tender, lungs clear, normal breath sounds Abdomen: normal bowel sounds, non tender, soft, no organomegaly Edema: no edema noted Arm (L), no edema noted Arm (R) Edema: trace edema Neurologic: executive coordinator II-XII grossly normal, abnormal gait, alert, oriented x 3, responsive Skin: normal pigmentation Lymphatic: normal anterior cervical (L), normal anterior cervical (R) Assessment/Plan Problem List: (1) Gait instability ICD Codes: R26.81 - Unsteadiness on feet SNOMED: 79179692 (2) CVA (cerebral vascular accident) ICD Codes: I63.9 - Cerebral infarction, unspecified SNOMED: 445377793 (3) Incontinence ICD Codes: R32 - Unspecified urinary incontinence SNOMED: 32840012 (4) CHF (congestive heart failure) ICD Codes: I50.9 - Heart failure, unspecified SNOMED: 74307110 Status: stable Assessment/Plan: po lasix pt ot eval ct brain- nothing acute CT spine- +fusion iv abx for uti for 2 more days flomax BP rx monitor labs leg elevation repeat bladder US dc planning to assisted living wednesday after completion of iv abx. Pt refusing snf. Cont therapy while in house Amador Marin MD Jul 24, 2020 21:32
--- NOTE | 2020-07-24 23:13 | Psych Consult Progress Note ---
Psychiatry Progress Note Psychiatry Progress Note Medications Current Medications Medications (Trade) Dose Ordered Sig/Beni Route PRN Reason Start Time Stop Time Status Last Admin Dose Admin Acetaminophen (Tylenol) 500 mg Q4H PRN ORAL Mild Pain (Pain Scale 1-3) 07/19/20 17:00 08/18/20 16:59 07/24/20 08:37 Aspirin (Ecotrin) 81 mg DAILY ORAL 07/20/20 09:00 09/03/20 08:59 07/24/20 08:38 Furosemide (Lasix) 20 mg DAILY ORAL 07/22/20 09:00 08/21/20 08:59 07/24/20 08:38 Hydralazine HCl (Apresoline) 25 mg Q6H PRN ORAL For High Blood Pressure 07/19/20 17:00 10/17/20 16:59 07/24/20 00:02 Latanoprost (Xalatan) 1 drop BEDTIME BOTH EYES 07/20/20 21:00 08/19/20 20:59 07/24/20 19:59 Metoprolol Succinate (Toprol XL) 25 mg DAILY ORAL 07/20/20 09:00 10/18/20 08:59 07/24/20 08:38 Ondansetron HCl (Zofran) 4 mg Q6H PRN IVP Nausea & Vomiting 07/19/20 17:00 08/18/20 16:59 Piperacillin Sod/ Tazobactam Sod 3.375 gm/Sodium Chloride 110 ml @ 27.5 mls/hr EVERY 8 HOURS IVPB 07/21/20 22:00 07/26/20 21:59 07/24/20 21:12 Tamsulosin HCl (Flomax) 0.4 mg BEDTIME ORAL 07/19/20 21:00 08/18/20 20:59 07/24/20 19:59 Neurological/Psychiatric: Reports: anxiety, depressed, emotional problems, pre- existing deficit Allergies: Coded Allergies: No Known Allergies (Unverified , 07/19/20) Objective Data Height (Feet): 5 Height (Inches): 6.00 Weight (Pounds): 207 General Appearance: WD/WN, alert Additional Comments: ASSESSMENT: [place] I Anxiety disorder. Cognitive impairment, mild. [place] II Deferred. [place] III As above. [place] IV Low. [place] V 50. PLAN: 1. Start patient on anti-anxiety medication. 2. Patient lacks capacity to make decisions Assessment/Plan Status: stable Kwadwo Leonard MD Jul 24, 2020 23:13
[2020-07-25] VITALS: BP 155/95
--- NOTE | 2020-07-25 00:45 | Consultation ---
DATE OF CONSULTATION: 07/24/2020 CONSULTING PHYSICIAN: Kwadwo Leonard MD. HISTORY OF PRESENT ILLNESS: This is an 85-year-old male with a history of high blood pressure, urinary incontinence, chronic kidney disease, and BPH who has been admitted to the hospital for lower extremity edema. I was called to assess for anxiety and capacity. Patient has a history of anxiety, depression. Currently on Xanax. Outside of the hospital, he has been receiving Xanax. PAST PSYCHIATRIC HISTORY: Anxiety. No psychiatric hospitalization. No suicide attempt. PAST MEDICAL HISTORY: As above. ALLERGIES: No known drug allergies. SUBSTANCE ABUSE HISTORY: No known history of illicit drug use or alcohol. MENTAL STATUS EXAMINATION: Patient is alert, oriented times self, place, situation. Mood is dysphoric and anxious. Affect is blunted, congruent with mood. Thought process is concrete. Thought content, no suicidal or homicidal ideation. Cognition is impaired, specifically memory. Insight and judgment is fair. ASSESSMENT: [place] I Anxiety disorder. Cognitive impairment, mild. [place] II Deferred. [place] III As above. [place] IV Low. [place] V 50. PLAN: 1. Start patient on anti-anxiety medication. 2. Patient lacks capacity to make decisions. . 3. Continue current psychotropic medications. Kwadwo Leonard M.D. DR: ZEYAD JOB#: [id number] CC:
--- NOTE | 2020-07-25 02:07 | Cardiology Progress Note ---
Subjective DATE OF SERVICE: Jul 24, 2020 Leg swelling better. Remains unable to ambulate safely. Not SOB today. Now on oral diuretic rx BP parameters have stabilized. Urine culture positive for widely resistant proteus strain; patient already was on Zosyn - thru 07/26. CT scans revealed post surgical changes; cannot exclude disciitis. Objective Last 24 Hour Vital Signs Date Time Temp Pulse Resp B/P (MAP) Pulse Ox O2 Delivery O2 Flow Rate FiO2 07/25/20 00:00 99.7 76 18 155/95 (115) 96 07/24/20 21:00 Room Air 07/24/20 20:00 98.4 69 20 151/94 (113) 97 07/24/20 16:00 98.1 64 19 140/76 (97) 97 07/24/20 12:00 97.8 76 17 126/76 (93) 95 07/24/20 09:00 Room Air 07/24/20 08:38 71 131/61 07/24/20 08:00 97.6 71 20 131/61 (84) 95 07/24/20 04:00 97.7 80 19 146/76 (99) 96 ROS: unchanged from my evaluation on 07/19/20 HEENT: normal ENT inspection RHYTHM: NSR, ST LUNGS: lungs clear bilaterally, diminished breath sounds CARDIAC: systolic murmur - 1/6 systolic at LLSB, rapid rate, gallop/S4 ABDOMEN: normal bowel sounds, non tender, hepatomegaly EXTREMITIES: moderate edema, pitting edema, +1 edema Assessment/Plan Assessment/Plan 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 Maintenance dose oral diuretics Titrate antiHTN meds as needed Compression stockings Salt restriction DVT prophyl Antimicrobial therapy thru 07/26. Protein suppl Mobilize Xavier Stevens MD Jul 25, 2020 02:07
[2020-07-25 04:00] VITALS: BP 155/93
[2020-07-25] MEDS: Piperacillin/Tazobactam 3.375 GM in NS 110 ML IVPB SCH ×3 (05:24→21:09)
[2020-07-25 07:02] LABS: BASOPHILS % (AUTO) 1.5 % (0.0-2.0); EOSINOPHILS % (AUTO) 4.2 % (0.0-3.0); HEMATOCRIT 38.5 % (42.0-52.0); HEMOGLOBIN 12.9 G/DL (14.2-18.0); LYMPHOCYTES % (AUTO) 27.6 % (20.0-45.0); MEAN CORPUSCULAR VOLUME 88 FL (80-99); NEUTROPHILS % (AUTO) 57.8 % (45.0-75.0); PLATELET COUNT 207 K/UL (150-450); RED BLOOD COUNT 4.38 M/UL (4.70-6.10); RED CELL DISTRIBUTION WIDTH 13.2 % (11.6-14.8); WHITE BLOOD COUNT 7.2 K/UL (4.8-10.8)
[2020-07-25 07:20] LABS: ALBUMIN 2.8 G/DL (3.4-5.0); ALBUMIN/GLOBULIN RATIO 0.7 (1.0-2.7); ALKALINE PHOSPHATASE 50 U/L (46-116); ANION GAP 8 mmol/L (5-15); ASPARTATE AMINO TRANSFERASE 23 U/L (15-37); BILIRUBIN,TOTAL 0.6 MG/DL (0.2-1.0); BLOOD UREA NITROGEN 20 mg/dL (7-18); CALCIUM 8.8 MG/DL (8.5-10.1); CARBON DIOXIDE 25 MMOL/L (21-32); CHLORIDE 104 MMOL/L (98-107); CREATININE 1.1 MG/DL (0.55-1.30); POTASSIUM 3.8 MMOL/L (3.5-5.1); SODIUM 137 MMOL/L (136-145)
[2020-07-25 07:55] VITALS: BP 126/79
[2020-07-25] MEDS: Metoprolol Succinate XL 25mg tab ORAL SCH (08:28)
[2020-07-25] MEDS: Aspirin EC 81mg tab ORAL SCH (08:28)
[2020-07-25 09:05] LABS: ALANINE AMINOTRANSFERASE 23 U/L (12-78)
[2020-07-25 12:53] VITALS: BP 144/87
[2020-07-25] MEDS: Acetaminophen 500mg (ES) tab ORAL PRN ×2 (15:21→21:23)
[2020-07-25 16:00] VITALS: BP 116/67
--- NOTE | 2020-07-25 16:06 | General Progress Note ---
Subjective ROS Limited/Unobtainable: No Constitutional: Reports: malaise, weakness HEENT: Reports: no symptoms Cardiovascular: Reports: no symptoms Respiratory: Reports: no symptoms Gastrointestinal/Abdominal: Reports: no symptoms Genitourinary: Reports: no symptoms Neurologic/Psychiatric: Reports: no symptoms Endocrine: Reports: no symptoms Hematologic/Lymphatic: Reports: no symptoms Allergies: Coded Allergies: No Known Allergies (Unverified , 07/19/20) All Systems: reviewed and negative except above Subjective no events. w/o complaints. resting. still with unsteady gait. remains on iv abx,. Objective Last 24 Hour Vital Signs Date Time Temp Pulse Resp B/P (MAP) Pulse Ox O2 Delivery O2 Flow Rate FiO2 07/25/20 12:53 98.4 89 18 144/87 (106) 94 07/25/20 08:28 89 126/79 07/25/20 08:06 Room Air 07/25/20 07:55 97.2 89 18 126/79 (95) 96 07/25/20 04:00 99.0 81 18 155/93 (113) 96 07/25/20 00:00 99.7 76 18 155/95 (115) 96 07/24/20 21:00 Room Air 07/24/20 20:00 98.4 69 20 151/94 (113) 97 Intake and Output 07/24/20 07/25/20 19:00 07:00 Intake Total 400 ml 497.5 ml Output Total 700 ml Balance 400 ml -202.5 ml Intake Oral 400 ml IV Total 137.5 ml Other 360 ml Output Urine Total 700 ml Bladder Scan Volume Amount 33-72 # Bowel Movements 1 Laboratory Tests 07/25/20 05:14: White Blood Count 7.2, Red Blood Count 4.38L, Hemoglobin 12.9L, Hematocrit 38.5L , Mean Corpuscular Volume 88, Mean Corpuscular Hemoglobin 29.3, Mean Corpuscular Hemoglobin Concent 33.4, Red Cell Distribution Width 13.2, Platelet Count 207, Mean Platelet Volume 6.1L, Neutrophils (%) (Auto) 57.8, Lymphocytes (%) (Auto) 27.6, Monocytes (%) (Auto) 9.0, Eosinophils (%) (Auto) 4.2H, Basophils (%) (Auto) 1.5, Sodium Level 137, Potassium Level 3.8, Chloride Level 104, Carbon Dioxide Level 25, Anion Gap 8, Blood Urea Nitrogen 20H, Creatinine 1.1, Estimat Glomerular Filtration Rate > 60, Glucose Level 96, Calcium Level 8.8, Total Bilirubin 0.6, Aspartate Amino Transf (AST/SGOT) 23, Alanine Aminotransferase (ALT/SGPT) 23, Alkaline Phosphatase 50, Total Protein 6.7, Albumin 2.8L, Globulin 3.9, Albumin/Globulin Ratio 0.7L Height (Feet): 5 Height (Inches): 6.00 Weight (Pounds): 207 Objective EENT: normal ENT inspection Neck: non-tender, normal alignment Cardiovascular: normal peripheral pulses, normal rate Respiratory/Chest: chest wall non-tender, lungs clear, normal breath sounds Abdomen: normal bowel sounds, non tender, soft, no organomegaly Edema: no edema noted Arm (L), no edema noted Arm (R) Edema: trace edema Neurologic: chemistry quality control analyst II-XII grossly normal, abnormal gait, alert, oriented x 3, responsive Skin: normal pigmentation Lymphatic: normal anterior cervical (L), normal anterior cervical (R) Assessment/Plan Problem List: (1) Gait instability ICD Codes: R26.81 - Unsteadiness on feet SNOMED: 13794971 (2) CVA (cerebral vascular accident) ICD Codes: I63.9 - Cerebral infarction, unspecified SNOMED: 459197326 (3) Incontinence ICD Codes: R32 - Unspecified urinary incontinence SNOMED: 24263923 (4) CHF (congestive heart failure) ICD Codes: I50.9 - Heart failure, unspecified SNOMED: 99263707 Status: stable Assessment/Plan: po lasix pt ot eval ct brain- nothing acute CT spine- +fusion iv abx for uti for 2 more days flomax BP rx monitor labs leg elevation repeat bladder US dc planning to assisted living wednesday after completion of iv abx. Pt refusing snf. Cont therapy while in house Amador Marin MD Jul 25, 2020 16:06
[2020-07-25 20:00] VITALS: BP 112/69
[2020-07-25] MEDS: Latanoprost 0.005% Opth 2.5ml Soln BOTH EYES SCH (21:09)
[2020-07-25] MEDS: Tamsulosin 0.4mg cap ORAL SCH (21:09)
--- NOTE | 2020-07-25 23:06 | Cardiology Progress Note ---
Subjective DATE OF SERVICE: Jul 25, 2020 Leg swelling much better. Continues with PTx Not SOB today. On oral diuretic rx BP parameters have stabilized. Urine culture positive for widely resistant proteus strain; patient already was on Zosyn - thru 07/26. CT scans revealed post surgical changes; cannot exclude disciitis. Objective Last 24 Hour Vital Signs Date Time Temp Pulse Resp B/P (MAP) Pulse Ox O2 Delivery O2 Flow Rate FiO2 07/25/20 21:00 Room Air 07/25/20 20:00 97.3 80 18 112/69 (83) 96 07/25/20 16:00 98.6 51 20 116/67 (83) 95 07/25/20 12:53 98.4 89 18 144/87 (106) 94 07/25/20 08:28 89 126/79 07/25/20 08:06 Room Air 07/25/20 07:55 97.2 89 18 126/79 (95) 96 07/25/20 04:00 99.0 81 18 155/93 (113) 96 07/25/20 00:00 99.7 76 18 155/95 (115) 96 ROS: unchanged from my evaluation on 07/19/20 HEENT: normal ENT inspection RHYTHM: NSR, ST LUNGS: lungs clear bilaterally, diminished breath sounds CARDIAC: systolic murmur - 1/6 systolic at LLSB, rapid rate, gallop/S4 ABDOMEN: normal bowel sounds, non tender, hepatomegaly EXTREMITIES: trace edema, pitting edema Laboratory Tests Test 07/25/20 05:14 White Blood Count 7.2 K/UL (4.8-10.8) Red Blood Count 4.38 M/UL (4.70-6.10) L Hemoglobin 12.9 G/DL (14.2-18.0) L Hematocrit 38.5 % (42.0-52.0) L Mean Corpuscular Volume 88 FL (80-99) Mean Corpuscular Hemoglobin 29.3 PG (27.0-31.0) Mean Corpuscular Hemoglobin Concent 33.4 G/DL (32.0-36.0) Red Cell Distribution Width 13.2 % (11.6-14.8) Platelet Count 207 K/UL (150-450) Mean Platelet Volume 6.1 FL (6.5-10.1) L Neutrophils (%) (Auto) 57.8 % (45.0-75.0) Lymphocytes (%) (Auto) 27.6 % (20.0-45.0) Monocytes (%) (Auto) 9.0 % (1.0-10.0) Eosinophils (%) (Auto) 4.2 % (0.0-3.0) H Basophils (%) (Auto) 1.5 % (0.0-2.0) Sodium Level 137 MMOL/L (136-145) Potassium Level 3.8 MMOL/L (3.5-5.1) Chloride Level 104 MMOL/L (98-107) Carbon Dioxide Level 25 MMOL/L (21-32) Anion Gap 8 mmol/L (5-15) Blood Urea Nitrogen 20 mg/dL (7-18) H Creatinine 1.1 MG/DL (0.55-1.30) Estimat Glomerular Filtration Rate > 60 mL/min (>60) Glucose Level 96 MG/DL (74-106) Calcium Level 8.8 MG/DL (8.5-10.1) Total Bilirubin 0.6 MG/DL (0.2-1.0) Aspartate Amino Transf (AST/SGOT) 23 U/L (15-37) Alanine Aminotransferase (ALT/SGPT) 23 U/L (12-78) Alkaline Phosphatase 50 U/L (46-116) Total Protein 6.7 G/DL (6.4-8.2) Albumin 2.8 G/DL (3.4-5.0) L Globulin 3.9 g/dL Albumin/Globulin Ratio 0.7 (1.0-2.7) L Assessment/Plan Assessment/Plan 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 Hx prostate CA UTI Moderate protein/calorie malnutrition Gait abnormality Degenerative disc disease with post surgical changes; no clinical sx's of di sciitis. Maintenance dose oral diuretics Titrate antiHTN meds as needed Compression stockings Salt restriction DVT prophyl Antimicrobial therapy thru 07/26. Protein suppl Mobilize Xavier Stevens MD Jul 25, 2020 23:06
--- NOTE | 2020-07-25 23:37 | Psych Consult Progress Note ---
Psychiatry Progress Note Psychiatry Progress Note Medications Current Medications Medications (Trade) Dose Ordered Sig/Beni Route PRN Reason Start Time Stop Time Status Last Admin Dose Admin Acetaminophen (Tylenol) 500 mg Q4H PRN ORAL Mild Pain (Pain Scale 1-3) 07/19/20 17:00 08/18/20 16:59 07/25/20 21:23 Aspirin (Ecotrin) 81 mg DAILY ORAL 07/20/20 09:00 09/03/20 08:59 07/25/20 08:28 Furosemide (Lasix) 20 mg DAILY ORAL 07/22/20 09:00 08/21/20 08:59 07/25/20 08:28 Hydralazine HCl (Apresoline) 25 mg Q6H PRN ORAL For High Blood Pressure 07/19/20 17:00 10/17/20 16:59 07/24/20 00:02 Latanoprost (Xalatan) 1 drop BEDTIME BOTH EYES 07/20/20 21:00 08/19/20 20:59 07/25/20 21:09 Metoprolol Succinate (Toprol XL) 25 mg DAILY ORAL 07/20/20 09:00 10/18/20 08:59 07/25/20 08:28 Ondansetron HCl (Zofran) 4 mg Q6H PRN IVP Nausea & Vomiting 07/19/20 17:00 08/18/20 16:59 Piperacillin Sod/ Tazobactam Sod 3.375 gm/Sodium Chloride 110 ml @ 27.5 mls/hr EVERY 8 HOURS IVPB 07/21/20 22:00 07/26/20 21:59 07/25/20 21:09 Tamsulosin HCl (Flomax) 0.4 mg BEDTIME ORAL 07/19/20 21:00 08/18/20 20:59 07/25/20 21:09 Neurological/Psychiatric: Reports: no symptoms, anxiety, depressed, emotional problems Allergies: Coded Allergies: No Known Allergies (Unverified , 07/19/20) Objective Data Height (Feet): 5 Height (Inches): 6.00 Weight (Pounds): 207 General Appearance: WD/WN, alert Additional Comments: alert, oriented times self, place, situation. Mood is dysphoric and anxious. Affect is blunted, congruent with mood. Thought process is concrete. Thought content, no suicidal or homicidal ideation. Cognition is impaired, specifically memory. Insight and judgment is fair. Assessment/Plan Status: stable Assessment/Plan: ASSESSMENT: [place] I Anxiety disorder. Cognitive impairment, mild. [place] II Deferred. [place] III As above. [place] IV Low. [place] V 50. PLAN: 1. Start patient on anti-anxiety medication. 2. Patient lacks capacity to make decisions Kwadwo Leonard MD Jul 25, 2020 23:37
[2020-07-26] VITALS (7 sets, daily range): BP systolic 114–162; BP diastolic 65–84
[2020-07-26] MEDS: Piperacillin/Tazobactam 3.375 GM in NS 110 ML IVPB SCH ×2 (05:49→14:05)
[2020-07-26] MEDS: Metoprolol Succinate XL 25mg tab ORAL SCH (09:09)
[2020-07-26] MEDS: Aspirin EC 81mg tab ORAL SCH (09:09)
[2020-07-26] MEDS ORDERED: FLOMAX0.4 MG ORAL (15:02)
[2020-07-26] MEDS ORDERED: ASPIRIN EC81 MG ORAL (15:02)
[2020-07-26] MEDS ORDERED: FUROSEMIDE20 M1 ORAL (15:02)
--- NOTE | 2020-07-26 18:15 | Discharge Summary ---
DATE OF ADMISSION: 07/19/2020 DATE OF DISCHARGE: 07/26/2020 ADMISSION DIAGNOSES: 1. Gait instability. 2. Falls. 3. Gram-negative esteban UTI. 4. Sepsis. 5. Encephalopathy. 6. Acute renal failure. 7. CHF. DISCHARGE DIAGNOSES: 1. Gait instability. 2. Falls. 3. Gram-negative esteban UTI. 4. Sepsis. 5. Encephalopathy. 6. Acute renal failure. 7. CHF. HOSPITAL COURSE: The patient was admitted with complaints of inability to walk, lower extremity edema, and shortness of breath. He was diagnosed with CHF exacerbation. He received intravenous Lasix. His urinalysis was positive for ESBL UTI and he received IV antibiotics. On discharge, he was stable. It was recommended that he go to a fpc facility, but he refused. He will go back to his assisted living. He has had a 24-hour caregiver. DISCHARGE MEDICATIONS: Please see discharge medication list for discharge medications. DIET: Cardiac. ACTIVITY: Ad-lm. Amador Marin M.D. DR: PREM JOB#: [id number] CC:
--- NOTE | 2020-07-26 19:44 | Psych Consult Progress Note ---
Psychiatry Progress Note Psychiatry Progress Note Subjective the pt is forgetful but able to understand and make appropriate decisions about assigning a DPOA. He made it clear that he doesnt want any of his family members make decisions or take over his finances. he voiced that he doesnt trust his family. he has capacity to make decision. Medications Current Medications Medications (Trade) Dose Ordered Sig/Beni Route PRN Reason Start Time Stop Time Status Last Admin Dose Admin Acetaminophen (Tylenol) 500 mg Q4H PRN ORAL Mild Pain (Pain Scale 1-3) 07/19/20 17:00 08/18/20 16:59 07/25/20 21:23 Aspirin (Ecotrin) 81 mg DAILY ORAL 07/20/20 09:00 09/03/20 08:59 07/26/20 09:09 Furosemide (Lasix) 20 mg DAILY ORAL 07/22/20 09:00 08/21/20 08:59 07/26/20 09:10 Hydralazine HCl (Apresoline) 25 mg Q6H PRN ORAL For High Blood Pressure 07/19/20 17:00 10/17/20 16:59 07/24/20 00:02 Latanoprost (Xalatan) 1 drop BEDTIME BOTH EYES 07/20/20 21:00 08/19/20 20:59 07/25/20 21:09 Metoprolol Succinate (Toprol XL) 25 mg DAILY ORAL 07/20/20 09:00 10/18/20 08:59 07/26/20 09:09 Ondansetron HCl (Zofran) 4 mg Q6H PRN IVP Nausea & Vomiting 07/19/20 17:00 08/18/20 16:59 Piperacillin Sod/ Tazobactam Sod 3.375 gm/Sodium Chloride 110 ml @ 27.5 mls/hr EVERY 8 HOURS IVPB 07/21/20 22:00 07/26/20 21:59 07/26/20 14:05 Tamsulosin HCl (Flomax) 0.4 mg BEDTIME ORAL 07/19/20 21:00 08/18/20 20:59 07/25/20 21:09 Neurological/Psychiatric: Reports: anxiety, depressed, emotional problems, pre- existing deficit Allergies: Coded Allergies: No Known Allergies (Unverified , 07/19/20) Objective Data Height (Feet): 5 Height (Inches): 6.00 Weight (Pounds): 207 General Appearance: WD/WN, alert Additional Comments: ASSESSMENT: Park I Anxiety disorder. Cognitive impairment, mild. Park II Deferred. Park III As above. Park IV Low. Park V 50. PLAN: 1. Start patient on anti-anxiety medication. 2. Patient lacks capacity to make decisions Assessment/Plan Park I: ASSESSMENT: Park I Anxiety disorder. Cognitive impairment, mild. Park II Deferred. Park III As above. Park IV Low. Park V 50. PLAN: 1. Start patient on anti-anxiety medication. 2. Patient lacks capacity to make decisions Status: stable Status Narrative ASSESSMENT: Park I Anxiety disorder. Cognitive impairment, mild. Park II Deferred. Park III As above. Park IV Low. Park V 50. PLAN: 1. Start patient on anti-anxiety medication. 2. Patient lacks capacity to make decisions Assessment/Plan: ASSESSMENT: Park I Anxiety disorder. Cognitive impairment, mild. Park II Deferred. Park III As above. Park IV Low. Park V 50. PLAN: 1. Start patient on anti-anxiety medication. 2. Patient lacks capacity to make decisions Kwadwo Leonard MD Jul 26, 2020 19:44
[2020-07-26] MEDS: HydrALAZINE 25mg tab ORAL PRN (21:08)
[2020-07-26] MEDS: Tamsulosin 0.4mg cap ORAL SCH (21:08)
[2020-07-26] MEDS: Latanoprost 0.005% Opth 2.5ml Soln BOTH EYES SCH (21:10)
--- NOTE | 2020-07-27 00:06 | Cardiology Progress Note ---
Subjective DATE OF SERVICE: Jul 26, 2020 Leg swelling much better. Remains unable to ambulate safely. Not SOB today. Remains on oral diuretic rx BP parameters have stabilized. Urine culture positive for widely resistant proteus strain; patient already was on Zosyn - completed today. Objective Last 24 Hour Vital Signs Date Time Temp Pulse Resp B/P (MAP) Pulse Ox O2 Delivery O2 Flow Rate FiO2 07/26/20 21:08 162/77 07/26/20 21:00 Room Air 07/26/20 20:00 97.7 84 20 162/77 (105) 94 07/26/20 16:00 98.4 83 18 136/82 (100) 98 07/26/20 12:00 98.6 81 18 114/66 (82) 96 07/26/20 09:09 75 115/65 07/26/20 09:00 Room Air 07/26/20 08:00 98.0 75 18 115/65 (82) 96 07/26/20 04:00 98.3 74 18 145/81 (102) 95 ROS: unchanged from my evaluation on 07/19/20 HEENT: normal ENT inspection RHYTHM: NSR, ST LUNGS: lungs clear bilaterally, diminished breath sounds CARDIAC: systolic murmur - 1/6 systolic at LLSB, rapid rate, gallop/S4 ABDOMEN: normal bowel sounds, non tender, hepatomegaly EXTREMITIES: trace edema, pitting edema Assessment/Plan Assessment/Plan 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 Maintenance dose oral diuretics Titrate antiHTN meds as needed Compression stockings Salt restriction DVT prophyl Protein suppl Mobilize Xavier Stevens MD Jul 27, 2020 00:06
== END 2020-07-26 23:25 | disposition home or self-care (01) | DRG 871 ==
LOC: 4E 14:50
DX: A41.9 Sepsis, unspecified organism (principal); I50.33 Acute on chronic diastolic (congestive) heart failure; N17.9 Acute kidney failure, unspecified; G93.40 Encephalopathy, unspecified; E87.70 Fluid overload, unspecified; I87.2 Venous insufficiency (chronic) (peripheral); I11.0 Hypertensive heart disease with heart failure; I48.0 Paroxysmal atrial fibrillation; Z90.79 Acquired absence of other genital organ(s); R26.89 Other abnormalities of gait and mobility; R29.6 Repeated falls; F41.9 Anxiety disorder, unspecified; G31.84 Mild cognitive impairment of uncertain or unknown etiology; Z85.46 Personal history of malignant neoplasm of prostate; Z86.73 Personal history of transient ischemic attack (TIA), and cerebral infarction without residual deficits; N40.1 Benign prostatic hyperplasia with lower urinary tract symptoms; N39.498 Other specified urinary incontinence; Z66 Do not resuscitate
CPT/HCPCS: 36415; 70450; 71045; 72128; 72131; 80053; 81003; 83735; 83880; 84443; 84484; 85025; 87081; 87086; 87181; 93970; U0002

== ENCOUNTER 2020-09-12 13:15 | Inpatient (IN) | payer MEDICARE, BC ==
[~2020-09-12] VITALS: Ht 170.2 cm; Wt 90.7 kg
[~2020-09-12 13:15] MED LIST: ASPIRIN EC81 MG ORAL; CELEBREX100 MG ORAL; CELEBREX50 M1 ORAL; FLOMAX0.4 MG ORAL; FUROSEMIDE20 M1 ORAL; HYDROCHLOROTH12.5 MG ORAL; LATANOPROST 0.7.5 ML OP; LATANOPROST2.5 ML BOTH EYES; METOPROLOL SUCC25 MG ORAL
--- NOTE | 2020-09-12 13:40 | NUR ---
ED Nurse Note:pt. was BIBA from nursing facility with c/o general weakness and falls, he is A/Ox4, unable to ambulate at this time, no c/o pain at this time, pt. was taken for CT head
--- NOTE | 2020-09-12 14:07 | NUR ---
ED Nurse Note: Collected blood specimen then sent.
[2020-09-12 14:11] VITALS: BP 135/90
--- NOTE | 2020-09-12 14:13 | NUR ---
ED Nurse Note: Vicki lang at the bed side.
--- NOTE | 2020-09-12 14:25 | Emergency Room Report ---
History of Present Illness General Chief Complaint: Multiple Trauma/Fall Present Illness HPI 85-year-old male presents to the emergency department sent in from [facility] facility for increase in lower extremity weakness and multiple falls x2 days. Patient reports new onset of incontinence since this morning. Patient denies paresthesias. He does report having bilateral swollen lower extremities and states that this has been an ongoing issue however with medications his symptoms have not been improving. He denies pain in the lower extremities. He r eports that normally he can ambulate with his walker, however today he is too weak to stand. He denies hitting his head or having a loss of consciousness. He denies midline neck pain. Patient reports he has a history of chronic low back pain and states that he has had surgery on his back in the past. Denies incontinence of bowel. Denies fevers, chills, neck stiffness, sudden onset headache, dizziness chest pain or palpitations. (Natalie Cuevas) Allergies: Coded Allergies: No Known Allergies (Unverified , 07/19/20) COVID-19 Screening Contact w/high risk pt: No Experienced COVID-19 symptoms?: No COVID-19 Testing performed EXTERMINATION INSPECTOR: No (Natalie Cuevas) Patient History Past Medical History: see triage record, HTN, other - spinal stenosis Past Surgical History: other - cervica and lumbar fusions Pertinent Family History: none Reviewed Nursing Documentation: PMH: Agreed; PSxH: Agreed (Natalie Cuevas) Nursing Documentation-PMH Hx Hypertension: Yes (Natalie Cuevas) Review of Systems All Other Systems: negative except mentioned in HPI (Natalie Cuevas) Physical Exam Vital Signs Date Time Temp Pulse Resp B/P (MAP) Pulse Ox O2 Delivery O2 Flow Rate FiO2 09/12/20 13:01 98.8 77 20 141/94 (110) 92 Room Air Sp02 EP Interpretation: reviewed, normal General Appearance: no apparent distress, alert, GCS 15, non-toxic Head: normocephalic, atraumatic - no obvious signs of trauma Eyes: bilateral eye normal inspection, bilateral eye PERRL ENT: hearing grossly normal, normal voice Neck: full range of motion, no bony tend Respiratory: chest non-tender, lungs clear, normal breath sounds, no wheezing, speaking full sentences, other - no bruises Cardiovascular #1: regular rate, rhythm, no edema, edema - 1+ nonpitting edema from mid reza/calf down to ankles/feet bilaterally Cardiovascular #2: 2+ dorsalis pedis (R), 2+ dorsalis pedis (L) Gastrointestinal: normal bowel sounds, non tender, soft, non-distended, no guarding Rectal: deferred Genitourinary: normal inspection, no CVA tenderness Musculoskeletal: tender - Lumbar ttp- diffuse. NO palpable step-offs. no midline cervical spinous process tenderness. Neurologic: alert, motor strength/tone normal - equal bilaterally, distal neuro normal, oriented x3, sensory intact, responsive, speech normal, no focal defects, no Babinski, other - normal ankle reflexes bilaterally Psychiatric: judgement/insight normal Skin: other - hyperpigmentation and susan erythema to the bilateral lower extremities in the calf/reza and ankle most prominently. (Natalie Cuevas) Medical Decision Making PA Attestation Dr. Barney is my supervising Physician whom patient management has been discussed with. (Natalie Cuevas) Medicare Attestation I participated in the care of this patient along with EFREN Melo and agree with treatment plan. Briefly, this an 85-year-old female who require admission for multiple falls and lower extremity weakness. Labs are within normal limits. Patient will be admitted due to change in ability to ambulate safely from baseline (Axel Barney MD) Diagnostic Impression: Primary Impression: Gait instability Additional Impressions: Incontinence Qualified Codes: R32 - Unspecified urinary incontinence Spinal stenosis at L4-L5 level Spinal stenosis Qualified Codes: M48.00 - Spinal stenosis, site unspecified Spinal stenosis, cervical region ER Course 85-year-old male presents to the emergency department sent in from retirement facility for increase in lower extremity weakness and multiple falls x2 days. Patient reports new onset of incontinence since this morning. Patient denies paresthesias. He does report having bilateral swollen lower extremities and states that this has been an ongoing issue however with medications his symptoms have not been improving. He denies pain in the lower extremities. He reports that normally he can ambulate with his walker, however today he is too weak to stand. He denies hitting his head or having a loss of consciousness. He denies midline neck pain. Patient reports he has a history of chronic low back pain and states that he has had surgery on his back in the past. Denies incontinence of bowel. Denies fevers, chills, neck stiffness, sudden onset headache, dizziness chest pain or palpitations. Ddx considered but are not limited to : MS, MG, guilan barre, CT, drug intoxication, hypovolemia, infection, rhabdomylosis, ETOH, CVA/TIA, NMS, CHF, Seizures, Cardiac outflow obstruction, QT-prolongation, Brugada, or Anemia just to name a few. Vital signs: are WNL, pt. is afebrile H&PE are most consistent with New onset LE weakness and urinary incontinence requiring labs and imaging. ORDERS: -- CBC: WNL -CMP: WNL - UA: Pending at time of admission ED INTERVENTIONS: DISPOSITION: at this time pt. will be admitted to Dr. MARIN for instability with lower extremity weakness. Dr. Marin agreed to admit the pt. and to continue pt. care management. Labs Test 09/12/20 14:05 White Blood Count 5.0 K/UL (4.8-10.8) Red Blood Count 4.73 M/UL (4.70-6.10) Hemoglobin 14.5 G/DL (14.2-18.0) Hematocrit 45.3 % (42.0-52.0) Mean Corpuscular Volume 96 FL (80-99) Mean Corpuscular Hemoglobin 30.7 PG (27.0-31.0) Mean Corpuscular Hemoglobin Concent 32.0 G/DL (32.0-36.0) Red Cell Distribution Width 16.2 % (11.6-14.8) Platelet Count 142 K/UL (150-450) Mean Platelet Volume 7.7 FL (6.5-10.1) Neutrophils (%) (Auto) 43.7 % (45.0-75.0) Lymphocytes (%) (Auto) 38.4 % (20.0-45.0) Monocytes (%) (Auto) 13.1 % (1.0-10.0) Eosinophils (%) (Auto) 1.6 % (0.0-3.0) Basophils (%) (Auto) 3.2 % (0.0-2.0) Sodium Level 138 MMOL/L (136-145) Potassium Level 4.0 MMOL/L (3.5-5.1) Chloride Level 104 MMOL/L (98-107) Carbon Dioxide Level 30 MMOL/L (21-32) Anion Gap 4 mmol/L (5-15) Blood Urea Nitrogen 18 mg/dL (7-18) Creatinine 1.3 MG/DL (0.55-1.30) Estimat Glomerular Filtration Rate > 60 mL/min (>60) Glucose Level 84 MG/DL (74-106) Calcium Level 9.0 MG/DL (8.5-10.1) Total Bilirubin 0.8 MG/DL (0.2-1.0) Aspartate Amino Transf (AST/SGOT) 39 U/L (15-37) Alanine Aminotransferase (ALT/SGPT) 27 U/L (12-78) Alkaline Phosphatase 57 U/L (46-116) Total Creatine Kinase 266 U/L (26-308) Troponin I 0.000 ng/mL (0.000-0.056) Total Protein 8.1 G/DL (6.4-8.2) Albumin 3.5 G/DL (3.4-5.0) Globulin 4.6 g/dL Albumin/Globulin Ratio 0.8 (1.0-2.7) (Natalie Cuevas) EKG Diagnostic Results Troponin ordered: Yes When was troponin ordered?: Sep 12, 2020 EKG Time: 14:29 Rate: normal Rhythm: NSR - [address] Segments: no acute changes Other Impression RBBB- complete PA Scribe Text This Interpretation was scribed by EFREN Cuevas. (Natalie Cuevas) CT/MRI/US Diagnostic Results CT/MRI/US Diagnostic Results #1: Imaging Test Ordered: CT Head No contrast Impression " 1. No acute intracranial abnormality. 2. Stable chronic small vessel ischemic changes and cerebral volume loss. Stable prominence of the lateral and third ventricles slightly out of portion to the prominence of the cerebral sulci could represent component of hydrocephalus. ." --Per official radiology report- Please see report for specific details. CT/MRI/US Diagnostic Results #2: Imaging Test Ordered: CT C-spine no contrast Impression " ." --Per official radiology report- Please see report for specific details. CT/MRI/US Diagnostic Results #3: Imaging Test Ordered: CT L-spine no contrast Impression " IMPRESSION: 1. Posterior fusion hardware again noted in the lower thoracic spine and lumbar spine. Possible similar fluid with calcification in the laminectomy site of the lumbar spine. Stable grade 1/2 anterolisthesis of L5 on S1. Stable mild retrolisthesis of L1 and L2. 2. Prominent multilevel degenerative changes again noted, especially at L4-5 and L5-S1. Given the prominent endplate irregularity at L4-5 and L5- S1, prior or current discitis/osteomyelitis cannot be excluded. 3. Severe neural foraminal stenoses at L4-5 and L5-S1. Mild to moderate neural foraminal stenoses at the other levels. Evaluation of spinal canal contents is limited by artifact from surgical hardware. Further evaluation could be attempted with MRI if clinically indicated. ." --Per official radiology report- Please see report for specific details. CT/MRI/US Diagnostic Results #4: Imaging Test Ordered: Venous duplex ultrasound of the bilateral lower extremities Impression " Negative for acute DVT." --Per official radiology report- Please see report for specific details. (Natalie Cuevas) Last Vital Signs Date Time Temp Pulse Resp B/P (MAP) Pulse Ox O2 Delivery O2 Flow Rate FiO2 09/12/20 14:11 98.3 87 18 135/90 92 Room Air (Natalie Cuevas) Disposition: ADMITTED INPATIENT Condition: Serious Natalie Cuevas Sep 12, 2020 14:25 Axel Barney MD Sep 13, 2020 06:09
[2020-09-12] MEDS ORDERED: HYDROCHLOROTH12.5 MG ORAL (14:35)
[2020-09-12 14:49] LABS: BASOPHILS % (AUTO) 3.2 % (0.0-2.0); EOSINOPHILS % (AUTO) 1.6 % (0.0-3.0); HEMATOCRIT 45.3 % (42.0-52.0); HEMOGLOBIN 14.5 G/DL (14.2-18.0); LYMPHOCYTES % (AUTO) 38.4 % (20.0-45.0); MEAN CORPUSCULAR VOLUME 96 FL (80-99); MONOCYTES % (AUTO) 13.1 % (1.0-10.0); NEUTROPHILS % (AUTO) 43.7 % (45.0-75.0); PLATELET COUNT 142 K/UL (150-450); RED BLOOD COUNT 4.73 M/UL (4.70-6.10); RED CELL DISTRIBUTION WIDTH 16.2 % (11.6-14.8)
--- NOTE | 2020-09-12 14:49 | Diagnostic Imaging Report ---
EXAM: CT Lumbar Spine Without Intravenous Contrast CLINICAL HISTORY: PAIN TECHNIQUE: Axial computed tomography images of the lumbar spine without intravenous contrast. CTDI is 16.30 mGy and DLP is 554.60 mGy-cm. One or more of the following dose reduction techniques were used: automated exposure control, adjustment of the mA and/or kV according to patient size, use of iterative reconstruction technique. COMPARISON: CT lumbar spine on 07/22/2020 FINDINGS: Bones: Osteopenia. Posterior fusion hardware again noted in the lower thoracic spine and lumbar spine. No acute fracture. Disc spaces: Stable grade 1/2 anterolisthesis of L5 on S1. Stable mild retrolisthesis of L1 and L2. Prominent multilevel degenerative changes again noted, especially at L4-5 and L5-S1. Given the prominent endplate irregularity at L4-5 and L5-S1, prior or current discitis/osteomyelitis cannot be excluded. Evaluation of spinal canal contents is limited by artifact from surgical hardware. Severe neural foraminal stenoses at L4- 5 and L5-S1. Mild to moderate neural foraminal stenoses at the other levels. Soft tissues: Edema in the posterior soft tissues. Possible similar fluid with calcification in the laminectomy site of the lumbar spine. Other: Atherosclerotic changes of the vasculature. IMPRESSION: 1. Posterior fusion hardware again noted in the lower thoracic spine and lumbar spine. Possible similar fluid with calcification in the laminectomy site of the lumbar spine. Stable grade 1/2 anterolisthesis of L5 on S1. Stable mild retrolisthesis of L1 and L2. 2. Prominent multilevel degenerative changes again noted, especially at L4-5 and L5-S1. Given the prominent endplate irregularity at L4-5 and L5- S1, prior or current discitis/osteomyelitis cannot be excluded. 3. Severe neural foraminal stenoses at L4-5 and L5-S1. Mild to moderate neural foraminal stenoses at the other levels. Evaluation of spinal canal contents is limited by artifact from surgical hardware. Further evaluation could be attempted with MRI if clinically indicated.
[2020-09-12 14:52] LABS: ALANINE AMINOTRANSFERASE 27 U/L (12-78); ALBUMIN 3.5 G/DL (3.4-5.0); ALBUMIN/GLOBULIN RATIO 0.8 (1.0-2.7); ALKALINE PHOSPHATASE 57 U/L (46-116); ANION GAP 4 mmol/L (5-15); ASPARTATE AMINO TRANSFERASE 39 U/L (15-37); BILIRUBIN,TOTAL 0.8 MG/DL (0.2-1.0); BLOOD UREA NITROGEN 18 mg/dL (7-18); CARBON DIOXIDE 30 MMOL/L (21-32); CHLORIDE 104 MMOL/L (98-107); CREATINE KINASE 266 U/L (26-308); CREATININE 1.3 MG/DL (0.55-1.30); SODIUM 138 MMOL/L (136-145)
--- NOTE | 2020-09-12 14:52 | Diagnostic Imaging Report ---
EXAM: CT Cervical Spine Without Intravenous Contrast CLINICAL HISTORY: PAIN TECHNIQUE: Axial computed tomography images of the cervical spine without intravenous contrast. CTDI is 20.2 mGy and DLP is 462.6 mGy-cm. One or more of the following dose reduction techniques were used: automated exposure control, adjustment of the mA and/or kV according to patient size, use of iterative reconstruction technique. COMPARISON: None FINDINGS: Bones: Straightening of the normal cervical lordosis. Osteopenia. Subchondral cystic changes in the dens. Posterior fusion changes and laminectomies throughout the cervical spine and upper thoracic spine. Disc spaces: Prominent multilevel degenerative changes of the spine. Mild anterolisthesis of C2 on C3. Mild to moderate multilevel neural foraminal stenoses. Evaluation of spinal canal contents is limited by artifact from the surgical hardware. Soft tissues: Normal. Other: Normal. IMPRESSION: 1. No acute traumatic abnormality. 2. Posterior fusion changes and laminectomies throughout the cervical spine and upper thoracic spine. 3. Prominent multilevel degenerative changes of the spine. Evaluation of spinal canal contents is limited by artifact from the surgical hardware.
--- NOTE | 2020-09-12 14:55 | Diagnostic Imaging Report ---
EXAM: CT Head Without Intravenous Contrast CLINICAL HISTORY: PAIN TECHNIQUE: Axial computed tomography images of the head/brain without intravenous contrast. CTDI is 53.4 mGy and DLP is 1120.3 mGy-cm. One or more of the following dose reduction techniques were used: automated exposure control, adjustment of the mA and/or kV according to patient size, use of iterative reconstruction technique. COMPARISON: CT head on 07/22/2020 FINDINGS: Brain: No acute infarct or hemorrhage identified. No extra-axial fluid collection. No mass effect or midline shift. Scattered areas of hypoattenuation in the supratentorial white matter likely represent chronic small vessel ischemic changes. Ventricles and sulci: Prominence of the ventricles and sulci is likely secondary to cerebral volume loss. Stable prominence of the lateral and third ventricles slightly out of portion to the prominence of the cerebral sulci could represent component of hydrocephalus. Bones: Right craniotomy changes. Degenerative changes of the temporomandibular joints. No bony lesion or acute fracture. Subcutaneous tissues: Normal. Sinuses: Normal. No air-fluid levels or mucosal thickening. Mastoid air cells: Normal. Orbits: Grossly unremarkable. Other: Atherosclerotic calcifications in the intracranial vasculature. IMPRESSION: 1. No acute intracranial abnormality. 2. Stable chronic small vessel ischemic changes and cerebral volume loss. Stable prominence of the lateral and third ventricles slightly out of portion to the prominence of the cerebral sulci could represent component of hydrocephalus.
--- NOTE | 2020-09-12 14:58 | Diagnostic Imaging Report ---
EXAM: US Duplex Bilateral Lower Extremities Veins CLINICAL HISTORY: SWELL TECHNIQUE: Real-time duplex ultrasound scan of the bilateral lower extremity veins integrating B-mode two-dimensional vascular structure, Doppler spectral analysis, color flow Doppler imaging and compression. COMPARISON: Venous Doppler ultrasound on 07/19/2020 FINDINGS: Right deep veins: Unremarkable. No DVT in the right common femoral, femoral, proximal deep femoral or popliteal veins. The veins demonstrate normal color flow, are normally compressible, with normal phasic flow and/or augmentation response. Right superficial veins: Unremarkable. No thrombus in the visualized right great saphenous vein. Left deep veins: Unremarkable. No DVT in the left common femoral, femoral, proximal deep femoral or popliteal veins. The veins demonstrate normal color flow, are normally compressible, with normal phasic flow and/or augmentation response. Left superficial veins: Unremarkable. No thrombus in the visualized left great saphenous vein. Soft tissues: No acute findings. No popliteal cyst. IMPRESSION: No deep venous thrombosis identified in either lower extremity.
[2020-09-12 16:00] VITALS: BP 143/87
--- NOTE | 2020-09-12 16:00 | NUR ---
ED Nurse Note: Patient unable to provide urine sample. Anabella is okay without collecting urine at this time.
--- NOTE | 2020-09-12 16:39 | NUR ---
ED Nurse Note: Report given to Mayi WEBER of Med Surg unit.
--- NOTE | 2020-09-12 17:32 | NUR ---
NURSE NOTES: Received pt from ER at 1715, report given by TIA Hernandez. Pt is alert and oriented x4 under Dr Marin, no SOB, bed set in lowest position with alarm on and breaks engaged, skin clear and intact, denies any pain or discomfort at this time, IV line present on left AC, Dr Marin made aware of patient's arrival on unit and awaiting admission orders, pt stable and adjusting well, oriented to room and staff, will continue to monitor and proceed with plan of care, call light within reach.
[2020-09-12] MEDS ORDERED: celeBREX 200mg Cap **SURGERY PATIENTS ONLY ORAL ONE (18:00)
--- NOTE | 2020-09-12 19:16 | NUR ---
NURSE HAND-OFF: Important Events on Shift:[monitor VS and labs, safety and comfort, monitoring urine output] Patient Status: [stable] Diet: [regular cardiac diet] Pending Orders: [] Pending Results/Labs:[] Pending MD notification:[] Latest Vital Signs: Temperature 98.1 , Pulse 77 , B/P 143 /87 , Respiratory Rate 19 , O2 SAT 95 , Room Air, O2 Flow Rate . Vital Sign Comment: [] Latest De Jesus Fall Score: 35 Fall Risk: Medium Risk Safety Measures: Call light Within Reach, Bed Alarm , Side Rails Side Rails x2, Bed position Low and Locked. Fall Precautions: Report given to [TIA Gay].
[2020-09-12 20:00] VITALS: BP 158/86
--- NOTE | 2020-09-12 20:00 | NUR ---
NURSE NOTES: Patient received in bed awake, no complaints of pain, no acute distress. Call light and urinal within reach. Will continue plan of care.
[2020-09-12] MEDS: Tamsulosin 0.4mg cap ORAL SCH (20:04)
[2020-09-12] MEDS: Heparin 5000 units/ml inj SUBQ SCH (20:06)
[2020-09-13] VITALS (7 sets, daily range): BP systolic 116–152; BP diastolic 62–83
--- NOTE | 2020-09-13 05:48 | NUR ---
NURSE NOTES: Incontinence care provided. Condom catheter placed as patient was not able to use urinal as expected.
--- NOTE | 2020-09-13 06:20 | NUR ---
NURSE NOTES: Patient seen by Dr. Marin at bedside. Per Dr. Marin he will enter order for MRI of his back.
[2020-09-13 06:56] LABS: EOSINOPHILS % (AUTO) 2.9 % (0.0-3.0); HEMATOCRIT 44.1 % (42.0-52.0); HEMOGLOBIN 13.7 G/DL (14.2-18.0); LYMPHOCYTES % (AUTO) 50.8 % (20.0-45.0); MEAN CORPUSCULAR VOLUME 98 FL (80-99); MONOCYTES % (AUTO) 13.3 % (1.0-10.0); NEUTROPHILS % (AUTO) 32.1 % (45.0-75.0); PLATELET COUNT 123 K/UL (150-450); RED CELL DISTRIBUTION WIDTH 15.6 % (11.6-14.8); WHITE BLOOD COUNT 3.5 K/UL (4.8-10.8)
--- NOTE | 2020-09-13 07:10 | NUR ---
NURSE HAND-OFF: Important Events on Shift:[incontinence care] Patient Status: [stable] Diet: [Cardiac] Pending Orders: [for MRI spine] Pending Results/Labs:[] Pending MD notification:[] Latest Vital Signs: Temperature 98.6 , Pulse 90 , B/P 126 /83 , Respiratory Rate 20 , O2 SAT 96 , Room Air, O2 Flow Rate . Vital Sign Comment: [] Latest De Jesus Fall Score: 60 Fall Risk: High Risk Safety Measures: Call light Within Reach, Bed Alarm Zone 1, Side Rails Side Rails x2, Bed position Low and Locked. Fall Precautions: Yellow Socks Patient Fall Education Report given to [Saranya Molina RN].
[2020-09-13 07:23] LABS: ALANINE AMINOTRANSFERASE 25 U/L (12-78); ALBUMIN/GLOBULIN RATIO 0.8 (1.0-2.7); ALKALINE PHOSPHATASE 50 U/L (46-116); ANION GAP 6 mmol/L (5-15); ASPARTATE AMINO TRANSFERASE 27 U/L (15-37); BILIRUBIN,TOTAL 0.8 MG/DL (0.2-1.0); BLOOD UREA NITROGEN 19 mg/dL (7-18); CALCIUM 8.6 MG/DL (8.5-10.1); CARBON DIOXIDE 29 MMOL/L (21-32); CHLORIDE 105 MMOL/L (98-107); CREATININE 1.3 MG/DL (0.55-1.30); POTASSIUM 3.9 MMOL/L (3.5-5.1); SODIUM 140 MMOL/L (136-145)
[2020-09-13] MEDS: Aspirin EC 81mg tab ORAL SCH (08:55)
[2020-09-13] MEDS: Metoprolol Succinate XL 25mg tab ORAL SCH (08:55)
[2020-09-13] MEDS: hydroCHLOROthiazide 12.5mg TAB ORAL SCH (08:55)
[2020-09-13] MEDS: Heparin 5000 units/ml inj SUBQ SCH ×2 (09:00→20:09)
--- NOTE | 2020-09-13 14:00 | NUR ---
NURSE NOTES: No signs of distress or pain noted. Pt states that he feel weakness. Scheduled for MRI of spine.
--- NOTE | 2020-09-13 16:26 | Cardiology Report ---
APPROVED REPORT EKG Measurement Heart [id number] IN [id number] <Conclusion> Normal sinus rhythm Right bundle branch block Abnormal ECG
[2020-09-13] MEDS ORDERED: HYDRALAZINE HCL25 M1 ORAL (16:59)
[2020-09-13] MEDS ORDERED: ACETAMINOPHEN500 M3 ORAL (17:01)
--- NOTE | 2020-09-13 17:45 | History and Physical Report ---
DATE OF ADMISSION: 09/12/2020 CHIEF COMPLAINT: Recurrent falls, possible diskitis, and osteomyelitis. HISTORY OF PRESENT ILLNESS: The patient is an 85-year-old male, well known to me. He was transferred from the assisted living after repetitive falls and complaints of lower extremity weakness. The patient on evaluation in the emergency room had a CAT scan of the head that was unremarkable. He had a CAT scan of the spine that shows some questionable signs of osteomyelitis versus diskitis. He is therefore admitted for further evaluation and care. The patient denies any fevers or chills. He has had no chest pain or shortness of breath. 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 He denies any significant pain or trauma. PAST MEDICAL HISTORY: As above. He has a history of prostate cancer with history of prostatectomy. CURRENT MEDICATIONS: Reconciled and reviewed. ALLERGIES: None. FAMILY HISTORY: None. SOCIAL HISTORY: There is no known history of tobacco, ethanol, or drugs. REVIEW OF SYSTEMS: GENERAL: No fevers or chills. HEENT: No headaches or visual changes. CARDIOPULMONARY: No chest pain or shortness of breath. GASTROINTESTINAL: No nausea or vomiting. GENITOURINARY: No urgency or frequency. MUSCULOSKELETAL: No joint pain or swelling. NEUROLOGICAL: No evidence of seizures. PHYSICAL EXAMINATION: VITAL SIGNS: Temperature 99, pulse 84, respirations 20, and blood pressure 116/62. GENERAL: The patient is well developed, in no apparent distress. Awake, alert, and oriented x4. HEENT: Head is normocephalic and atraumatic. Sclerae are anicteric. Oropharynx is clear. NECK: Supple. HEART: Regular rate and rhythm. No murmurs, rubs, or gallops. LUNGS: Clear to auscultation bilaterally. ABDOMEN: Soft, nontender, and nondistended. EXTREMITIES: No clubbing, cyanosis, or edema. PERTINENT DATA: White count was 5, hemoglobin 14, hematocrit 45, platelets 142,000. Sodium 138, potassium 4. ASSESSMENT: This is a pleasant 85-year-old male admitted with complaints of repetitive falls and lower extremity edema, suspect secondary to gait instability, likely multifactorial, cannot rule out diskitis, although this seems less likely, as the patient has no fevers or chills. PLAN: 1. IV diuretic therapy. 2. Elevate legs. 3. Check a blood culture. 4. Check a sed rate. 5. Spine, Cardiology consultations. 6. Consider Infectious Disease consultation 7. PT and OT evaluations to be obtained 8. MRI of the spine to rule out diskitis. Amador Marin M.D. DR: STEFAN JOB#: [id number] CC:
--- NOTE | 2020-09-13 17:50 | Diagnostic Imaging Report ---
EXAM: MR Lumbar Spine Without Intravenous Contrast CLINICAL HISTORY: 85-year-old male presents to the emergency department sent in from [facility] for increase in lower extremity weakness and multiple falls x2 days. Patient reports new onset of incontinence since this morning. Patient denies paresthesias. He does report having bilateral swollen lower extremities and states that this has been an ongoing issue however with medications his symptoms have not been improving. He denies pain in the lower extremities. He reports that normally he can ambulate with his walker, however today he is too weak to stand. He denies hitting his head or having a loss of consciousness. He denies midline neck pain. Patient reports he has a history of chronic low back pain and states that he has had surgery on his back in the past. TECHNIQUE: Magnetic resonance images of the lumbar spine without intravenous contrast in multiple planes. COMPARISON: CT lumbar spine on 09/12/2020 and 07/22/2020 FINDINGS: Vertebrae: Posterior fusion hardware in the lower thoracic spine and lumbar spine. Laminectomy changes in the lumbar spine. No definite acute fracture identified. Spinal cord: Unremarkable. Normal signal. Soft tissues: Fluid in the laminectomy site may be related to postoperative seroma. Edema in the posterior soft tissues. DISCS/SPINAL CANAL/NEURAL FORAMINA: Prominent multilevel degenerative changes throughout the visualized lower thoracic spine and lumbar spine, most severe at L4-5 and L5-S1. Small amount of fluid in the disc spaces at T10-11, T12-L1, L1-L2, and L5- S1. This may be related to degenerative change, but early discitis is not excluded. Mild narrowing of the right lateral recess at T11-12. Question prominent epidural fat at the L3 and L4 levels. Moderate spinal canal stenosis at L4-5. Mild to moderate right neural foraminal stenosis at T11-12, at T10-11. Mild left neural foraminal stenosis at T12-L1. Mild bilateral neural foraminal stenoses at L1-2. Mild to moderate left neural foraminal stenosis at L3-4. Severe left neural foraminal stenosis at L4-5. Probable severe neural foraminal stenoses at L5-S1. IMPRESSION: 1. Small amount of fluid in the disc spaces at T10-11, T12-L1, L1-L2, and L5-S1. This may be related to degenerative change, but early discitis is not excluded. 2. Prominent multilevel degenerative changes throughout the visualized lower thoracic spine and lumbar spine, most severe at L4-5 and L5-S1. Moderate spinal canal stenosis at L4-5. Multilevel neural foraminal stenoses as described above. 3. Posterior fusion hardware in the lower thoracic spine and lumbar spine. Laminectomy changes in the lumbar spine. Fluid in the laminectomy site may be related to postoperative seroma.
--- NOTE | 2020-09-13 19:36 | NUR ---
HAND-OFF: Report given to Sameer Cazares,RN
--- NOTE | 2020-09-13 20:00 | NUR ---
NURSE NOTES: Received patient in bed, awake and alert. Condom catheter detached. Incontinence care provided and condom catheter replaced. No other complaints. Call light and personal belongings within reach. Will continue with plan of care.
[2020-09-13] MEDS: Tamsulosin 0.4mg cap ORAL SCH (20:05)
[2020-09-13] MEDS ORDERED: Pseudoephedrine 30mg tab ORAL SCH (22:15)
--- NOTE | 2020-09-13 22:23 | NUR ---
NURSE NOTES: Patient c/o nasal congestion and nonproductive cough. Dr. Marin made aware. Received order for sudafed 60mg x1. Noted and carried out.
[2020-09-13 23:51] LABS: APPEARANCE,URINE SLIGHTLY CLOUDY; COLOR,URINE PALE YELLOW; PH,URINE 7 (4.5-8.0)
[2020-09-13 23:52] LABS: BILIRUBIN, URINE NEGATIVE (NEGATIVE); GLUCOSE, URINE (UA) NEGATIVE (NEGATIVE); KETONES,URINE NEGATIVE (NEGATIVE); LEUKOCYTE ESTERASE ,URINE NEGATIVE (NEGATIVE); NITRITE,URINE NEGATIVE (NEGATIVE); PROTEIN,URINE NEGATIVE (NEGATIVE); UROBILINOGEN,URINE 1 MG/DL (0.0-1.0)
--- NOTE | 2020-09-14 01:40 | Cardiology Progress Note ---
Subjective DATE OF SERVICE: Sep 13, 2020 Unable to weightbear at present due to BLE weakness. Leg swelling unchanged. Objective Last 24 Hour Vital Signs Date Time Temp Pulse Resp B/P (MAP) Pulse Ox O2 Delivery O2 Flow Rate FiO2 09/13/20 23:21 99.1 89 18 146/74 (98) 95 09/13/20 21:00 Room Air 09/13/20 20:00 98.6 110 18 117/78 (91) 96 09/13/20 16:00 98.4 18 121/76 (91) 98 09/13/20 12:00 97.5 16 152/75 (100) 93 09/13/20 09:00 Room Air 09/13/20 08:55 84 116/62 09/13/20 08:00 99.3 84 20 116/62 (80) 96 09/13/20 04:00 98.6 90 20 126/83 (97) 96 HEENT: normal ENT inspection LUNGS: lungs clear bilaterally CARDIAC: normal rate, regular rhythm, normal S1 and S2, gallop/S4 ABDOMEN: normal bowel sounds, non tender, soft, no organomegaly EXTREMITIES: normal capillary refill, +1 edema, other - symmetric weakness of LE's Laboratory Tests Test 09/13/20 05:15 09/13/20 23:30 White Blood Count 3.5 K/UL (4.8-10.8) L Red Blood Count 4.50 M/UL (4.70-6.10) L Hemoglobin 13.7 G/DL (14.2-18.0) L Hematocrit 44.1 % (42.0-52.0) Mean Corpuscular Volume 98 FL (80-99) Mean Corpuscular Hemoglobin 30.4 PG (27.0-31.0) Mean Corpuscular Hemoglobin Concent 31.0 G/DL (32.0-36.0) L Red Cell Distribution Width 15.6 % (11.6-14.8) H Platelet Count 123 K/UL (150-450) L Mean Platelet Volume 7.3 FL (6.5-10.1) Neutrophils (%) (Auto) 32.1 % (45.0-75.0) L Lymphocytes (%) (Auto) 50.8 % (20.0-45.0) H Monocytes (%) (Auto) 13.3 % (1.0-10.0) H Eosinophils (%) (Auto) 2.9 % (0.0-3.0) Basophils (%) (Auto) 1.0 % (0.0-2.0) Erythrocyte Sedimentation Rate 36 MM/HR (0-20) H Sodium Level 140 MMOL/L (136-145) Potassium Level 3.9 MMOL/L (3.5-5.1) Chloride Level 105 MMOL/L (98-107) Carbon Dioxide Level 29 MMOL/L (21-32) Anion Gap 6 mmol/L (5-15) Blood Urea Nitrogen 19 mg/dL (7-18) H Creatinine 1.3 MG/DL (0.55-1.30) Estimat Glomerular Filtration Rate > 60 mL/min (>60) Glucose Level 104 MG/DL (74-106) Calcium Level 8.6 MG/DL (8.5-10.1) Total Bilirubin 0.8 MG/DL (0.2-1.0) Aspartate Amino Transf (AST/SGOT) 27 U/L (15-37) Alanine Aminotransferase (ALT/SGPT) 25 U/L (12-78) Alkaline Phosphatase 50 U/L (46-116) Total Protein 7.0 G/DL (6.4-8.2) Albumin 3.0 G/DL (3.4-5.0) L Globulin 4.0 g/dL Albumin/Globulin Ratio 0.8 (1.0-2.7) L Urine Color Pale yellow Urine Appearance Slightly cloudy Urine pH 7 (4.5-8.0) Urine Specific [place] 1.015 (1.005-1.035) Urine Protein Negative (NEGATIVE) Urine Glucose (UA) Negative (NEGATIVE) Urine Ketones Negative (NEGATIVE) Urine Blood 1+ (NEGATIVE) H Urine Nitrite Negative (NEGATIVE) Urine Bilirubin Negative (NEGATIVE) Urine Urobilinogen 1 MG/DL (0.0-1.0) H Urine Leukocyte Esterase Negative (NEGATIVE) Urine RBC 0 /HPF (0 - 0) Urine WBC 0-2 /HPF (0 - 0) Urine Squamous Epithelial Cells Occasional /LPF Urine Bacteria Occasional /HPF (NONE) Microbiology Date/Time Source Procedure Growth Status 09/12/20 14:46 Rectum Received Assessment/Plan Assessment/Plan Recurring falls Discogenic disease Hypertension/HHD Ac/chr diastolic CHF Chronic venous insuff Hx prostatectomy for CA Hx subdural hematoma with evacuation Paroxysmal atrial fibrillation Chronic RBBB conduction Diuresis No anticoagulation; DVT prophyl only Optimize antiHTN regimen Spine workup PT/OT Trend BNP Repeat PSA/B12/TSH/ESR Xavier Stevens MD Sep 14, 2020 01:40
--- NOTE | 2020-09-14 02:30 | Consultation ---
DATE OF CONSULTATION: 09/12/2020 CONSULTING PHYSICIAN: Xavier Stevens M.D. REQUESTING PHYSICIAN: Amador Marin M.D. REASON FOR CONSULTATION: ___ edema. HISTORY OF PRESENT ILLNESS: This 85-year-old male was admitted to the hospital for recurring falls due to lower extremity weakness and swelling. He recently had a CT scan, that was questionably abnormal for diskitis. He does have a history of significant lumbosacral disc disease. 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 ALLERGIES: None. MEDICATIONS: Reviewed and reconciled. FAMILY HISTORY: Noncontributory. SOCIAL HISTORY: Negative for smoking, alcohol, or substance abuse. REVIEW OF SYSTEMS: No fever, chills, or known COVID-19 exposures. No history of abnormal blood clotting. Prior echocardiogram revealed normal ejection fraction with diastolic dysfunction and mild degenerative valve disease. There is a history of atrial fibrillation. He has not been on anticoagulation due to fall risk and prior subdural hematoma. There is no known history of flow-limiting coronary disease. He denies any nausea, vomiting, constipation, or diarrhea. There is no complaint of difficulty voiding. His prostate cancer is in remission. There is no history of seizure or stroke. He does have significant thoracic and lumbar spine disease and associated gait limitations. There is no history of diabetes or thyroid impairment. PHYSICAL EXAMINATION: VITAL SIGNS: Blood pressure 141/94, pulse 77, respirations 20, afebrile. LUNGS: Clear. CARDIAC: Regular. Normal S1 and S2 with a fourth heart sound. ABDOMEN: Soft. EXTREMITIES: With 1+ dependent edema. NEUROLOGIC: Strength is symmetrically weakened. There is slight resting tremor. LABORATORY DATA: EKG with sinus rhythm and right bundle-branch block. White count 5 and hemoglobin 14.5. Potassium 4, BUN 18, creatinine 1.3. Troponin 0. Albumin 3.56. IMPRESSION: 1. Multiple falls due to lower extremity weakness, likely due to underlying degenerative disk disease and possible acute diskitis. 2. Worsening lower extremity edema, likely due to venous insufficiency and possible component of acute congestive failure in the setting of hypertensive heart disease. 3. Baseline right bundle-branch block of no clinical significance presently. 4. Paroxysmal atrial fibrillation, presently maintaining sinus rhythm and history of subdural hematoma and evacuation. PLAN: 1. Cautious diuresis. 2. Titration of antihypertensive and anti-failure regimen. 3. DVT prophylaxis. 4. Evaluation and diagnostic studies. No anticoagulation as stated above due to fall and bleeding risk. Xavier Stevens M.D. DR: NAT JOB#: [id number] CC:
--- NOTE | 2020-09-14 03:00 | NUR ---
NURSE NOTES: Tony from [place] reported patient + for VRE rectum. left message to Dr. Marin.
[2020-09-14 04:00] VITALS: BP 142/79
--- NOTE | 2020-09-14 06:57 | NUR ---
NURSE NOTES: Pt seen by Dr. Marin. made aware patient had no BM since admission. MD will enter order.
--- NOTE | 2020-09-14 07:16 | NUR ---
NURSE HAND-OFF: Important Events on Shift:[no BM] Patient Status: [stable] Diet: [Cardiac] Pending Orders: [laxatives from Dr. Marin] Pending Results/Labs:[] Pending MD notification:[] Latest Vital Signs: Temperature 98.3 , Pulse 92 , B/P 142 /79 , Respiratory Rate 20 , O2 SAT 95 , Room Air, O2 Flow Rate . Vital Sign Comment: [] Latest De Jesus Fall Score: 60 Fall Risk: High Risk Safety Measures: Call light Within Reach, Bed Alarm Zone 1, Side Rails Side Rails x2, Bed position Low and Locked. Fall Precautions: Yellow Socks Patient Fall Education Report given to [Jairo Palma RN].
[2020-09-14 07:37] LABS: ALANINE AMINOTRANSFERASE 24 U/L (12-78); ALBUMIN/GLOBULIN RATIO 0.7 (1.0-2.7); ALKALINE PHOSPHATASE 51 U/L (46-116); ANION GAP 6 mmol/L (5-15); ASPARTATE AMINO TRANSFERASE 26 U/L (15-37); BILIRUBIN,TOTAL 0.7 MG/DL (0.2-1.0); BLOOD UREA NITROGEN 19 mg/dL (7-18); CALCIUM 8.4 MG/DL (8.5-10.1); CARBON DIOXIDE 27 MMOL/L (21-32); CHLORIDE 103 MMOL/L (98-107); POTASSIUM 3.9 MMOL/L (3.5-5.1); SODIUM 136 MMOL/L (136-145)
[2020-09-14 08:00] VITALS: BP 122/77
--- NOTE | 2020-09-14 08:07 | NUR ---
NURSE NOTES: pt is awake and alert in the bed. respiration is even and unlabored. denies any kind of pain and discomfort. elevated BLE on a pillow. exchanged greetings with pt. no acute distress noted at this time. call light is within reach.
[2020-09-14] MEDS: Aspirin EC 81mg tab ORAL SCH (08:34)
[2020-09-14] MEDS: Metoprolol Succinate XL 25mg tab ORAL SCH (08:34)
[2020-09-14] MEDS: Heparin 5000 units/ml inj SUBQ SCH ×2 (08:34→20:40)
[2020-09-14] MEDS: hydroCHLOROthiazide 12.5mg TAB ORAL SCH (08:34)
--- NOTE | 2020-09-14 09:51 | General Progress Note ---
Subjective ROS Limited/Unobtainable: No Constitutional: Reports: malaise, weakness HEENT: Reports: no symptoms Cardiovascular: Reports: no symptoms Respiratory: Reports: no symptoms Gastrointestinal/Abdominal: Reports: no symptoms Genitourinary: Reports: no symptoms Neurologic/Psychiatric: Reports: pre-existing deficit Endocrine: Reports: no symptoms Hematologic/Lymphatic: Reports: no symptoms Allergies: Coded Allergies: No Known Allergies (Unverified , 07/19/20) All Systems: reviewed and negative except above Subjective no complaints. MRi reviewed. no fever or chills. no back pain. decreased LE edema. Objective Last 24 Hour Vital Signs Date Time Temp Pulse Resp B/P (MAP) Pulse Ox O2 Delivery O2 Flow Rate FiO2 09/14/20 08:34 92 142/79 09/14/20 04:00 98.3 92 20 142/79 (100) 95 09/13/20 23:21 99.1 89 18 146/74 (98) 95 09/13/20 21:00 Room Air 09/13/20 20:00 98.6 110 18 117/78 (91) 96 09/13/20 16:00 98.4 18 121/76 (91) 98 09/13/20 12:00 97.5 16 152/75 (100) 93 Intake and Output 09/13/20 09/14/20 19:00 07:00 Intake Total 640 ml Output Total 400 ml 850 ml Balance -400 ml -210 ml Intake Oral 640 ml Output Urine Total 400 ml 850 ml # Voids 1 Laboratory Tests 09/13/20 23:30: Urine Color Pale yellow, Urine Appearance Slightly cloudy, Urine pH 7, Urine Specific [place] 1.015, Urine Protein Negative, Urine Glucose (UA) Negative, Urine Ketones Negative, Urine Blood 1+H, Urine Nitrite Negative, Urine Bilirubin Negative, Urine Urobilinogen 1H, Urine Leukocyte Esterase Negative, Urine RBC 0, Urine WBC 0-2, Urine Squamous Epithelial Cells Occasional, Urine Bacteria Occasional 09/14/20 05:40: Sodium Level 136, Potassium Level 3.9, Chloride Level 103, Carbon Dioxide Level 27, Anion Gap 6, Blood Urea Nitrogen 19H, Creatinine 1.0, Estimat Glomerular Filtration Rate > 60, Glucose Level 98, Calcium Level 8.4L, Total Bilirubin 0.7, Aspartate Amino Transf (AST/SGOT) 26, Alanine Aminotransferase (ALT/SGPT) 24, Alkaline Phosphatase 51, Pro-B-Type Natriuretic Peptide 23, Total Protein 7.1, Albumin 3.0L, Globulin 4.1, Albumin/Globulin Ratio 0.7L, Prostate Specific Antigen 0.00L, Vitamin B12 Level 889, Thyroid Stimulating Hormone (TSH) 1.343, Rapid Plasma Reagin [Pending] Height (Feet): 5 Height (Inches): 7.00 Weight (Pounds): 200 General Appearance: WD/WN, alert EENT: PERRL/EOMI, normal ENT inspection Neck: normal alignment, normal inspection Cardiovascular: normal rate, regular rhythm Respiratory/Chest: chest wall non-tender, lungs clear, normal breath sounds, no respiratory distress Abdomen: normal bowel sounds, non tender, soft, no organomegaly Edema: 1+ Leg (L), 1+ Leg (R) Neurologic: physical education instructor II-XII grossly normal, alert, oriented x 3 Assessment/Plan Problem List: (1) CHF (congestive heart failure) ICD Codes: I50.9 - Heart failure, unspecified SNOMED: 46333309 (2) CVA (cerebral vascular accident) ICD Codes: I63.9 - Cerebral infarction, unspecified SNOMED: 318428651 (3) Spinal stenosis ICD Codes: M48.00 - Spinal stenosis, site unspecified SNOMED: 35777010 Qualifiers: Qualified Codes: M48.00 - Spinal stenosis, site unspecified (4) Gait instability ICD Codes: R26.81 - Unsteadiness on feet SNOMED: 91071075 (5) Incontinence ICD Codes: R32 - Unspecified urinary incontinence SNOMED: 33645945 Qualifiers: Qualified Codes: R32 - Unspecified urinary incontinence (6) Weakness ICD Codes: R53.1 - Weakness SNOMED: 24352404 (7) Spinal stenosis, cervical region ICD Codes: M48.02 - Spinal stenosis, cervical region SNOMED: 15492047 (8) Spinal stenosis at L4-L5 level ICD Codes: M48.061 - Spinal stenosis, lumbar region without neurogenic claudication SNOMED: 38674632 Status: stable Assessment/Plan: cont current rx prn diuresis pt/ot eval pain rx BPH rx pt/ot dc planning to snf Amador Marin MD Sep 14, 2020 09:51
[2020-09-14 12:00] VITALS: BP 122/83
[2020-09-14 16:00] VITALS: BP 118/72
[2020-09-14] MEDS: guaiFENesin /DM 10ml syrup ORAL PRN (18:35)
--- NOTE | 2020-09-14 18:54 | NUR ---
NURSE HAND-OFF: Important Events on Shift:COUGHING; COUGH SYRUP ANS CHEST X-RAY ORDERED Patient Status: STABLE Diet: REGULAR Pending Orders: N/A [facility] Pending MD notification:N/A Latest Vital Signs: Temperature 97.6 , Pulse 76 , B/P 118 /72 , Respiratory Rate 18 , O2 SAT 97 , Room Air, O2 Flow Rate . Vital Sign Comment: STABLE Latest De Jesus Fall Score: 60 Fall Risk: High Risk Safety Measures: Call light Within Reach, Bed Alarm Zone 1, Side Rails Side Rails x2, Bed position Low and Locked. Fall Precautions: Yellow Socks Patient Fall Education Report given to .
--- NOTE | 2020-09-14 19:30 | NUR ---
HAND-OFF: Report given to RICO.
[2020-09-14 20:00] VITALS: BP 140/88
--- NOTE | 2020-09-14 20:05 | NUR ---
NURSE NOTES: RECEIVED PATIENT FROM TIA JEREZ. PATIENT IS ASLEEP, AROUSABLE, ON ROOM AIR, NO ACUTE DISTRESS NOTED. PIV ON LEFT AC INTACT AND PATENT. CONDOM CATH IN PLACE, DRAINING WELL. PATIENT IS A HIGH FALL RISK D/T HISTORY OF FALL. YELLOW ARMBAND, YELLOW GOWN, YELLOW SOCKS IN PLACE. FALL RISK DOOR SIGN PRESENT. COMMUNICATED WITH STAFF TO PERFORM FREQUENT ROUNDING. BED IS LOCKED AND LOW, BED ALARMS ACTIVE, SIDE RAILS UPX2 AND CALL LIGHT IS WITHIN REACH. WILL CONTINUE TO MONITOR.
[2020-09-14] MEDS: Tamsulosin 0.4mg cap ORAL SCH (20:40)
[2020-09-15] VITALS: BP 117/85
[2020-09-15] MEDS: guaiFENesin /DM 10ml syrup ORAL PRN (00:16)
--- NOTE | 2020-09-15 03:15 | Cardiology Progress Note ---
Subjective DATE OF SERVICE: Sep 14, 2020 Pain decreased and mobility better. Leg swelling diminished. BNP is 23 PSA is 0 TSH/B12 normal Objective Last 24 Hour Vital Signs Date Time Temp Pulse Resp B/P (MAP) Pulse Ox O2 Delivery O2 Flow Rate FiO2 09/15/20 00:00 98.5 101 24 117/85 (96) 98 09/14/20 21:00 Room Air 09/14/20 20:00 98.8 78 18 140/88 (105) 97 09/14/20 16:00 97.6 76 18 118/72 (87) 97 09/14/20 12:00 98.4 76 18 122/83 (96) 100 09/14/20 09:00 Room Air 09/14/20 08:34 92 142/79 09/14/20 08:00 97.7 60 18 122/77 (92) 96 09/14/20 04:00 98.3 92 20 142/79 (100) 95 HEENT: normal ENT inspection LUNGS: lungs clear bilaterally CARDIAC: normal rate, regular rhythm, normal S1 and S2, gallop/S4 ABDOMEN: normal bowel sounds, non tender, soft, no organomegaly EXTREMITIES: normal capillary refill, trace edema, other - symmetric weakness of LE's Laboratory Tests Test 09/14/20 05:40 Sodium Level 136 MMOL/L (136-145) Potassium Level 3.9 MMOL/L (3.5-5.1) Chloride Level 103 MMOL/L (98-107) Carbon Dioxide Level 27 MMOL/L (21-32) Anion Gap 6 mmol/L (5-15) Blood Urea Nitrogen 19 mg/dL (7-18) H Creatinine 1.0 MG/DL (0.55-1.30) Estimat Glomerular Filtration Rate > 60 mL/min (>60) Glucose Level 98 MG/DL (74-106) Calcium Level 8.4 MG/DL (8.5-10.1) L Total Bilirubin 0.7 MG/DL (0.2-1.0) Aspartate Amino Transf (AST/SGOT) 26 U/L (15-37) Alanine Aminotransferase (ALT/SGPT) 24 U/L (12-78) Alkaline Phosphatase 51 U/L (46-116) Pro-B-Type Natriuretic Peptide 23 pg/mL (0-125) Total Protein 7.1 G/DL (6.4-8.2) Albumin 3.0 G/DL (3.4-5.0) L Globulin 4.1 g/dL Albumin/Globulin Ratio 0.7 (1.0-2.7) L Prostate Specific Antigen 0.00 ng/mL (0.13-4.0) L Vitamin B12 Level 889 PG/ML (193-986) Thyroid Stimulating Hormone (TSH) 1.343 uiU/mL (0.358-3.740) Rapid Plasma Reagin Pending Microbiology Date/Time Source Procedure Growth Status 09/13/20 22:30 Blood Blood Culture - Preliminary NO GROWTH AFTER 24 HOURS Resulted 09/12/20 14:46 Rectum - Final NO CARBAPENEM-RESISTANT ENTEROBACTERI... Complete 09/12/20 14:46 Rectum VRE Culture - Final Enterococcus Faecium - Vre Complete 09/12/20 14:46 Nasal Nares MRSA Culture - Final NO METHICILLIN RESISTANT STAPH AUREUS... Complete Assessment/Plan Assessment/Plan Recurring falls Discogenic disease Hypertension/HHD Ac/chr diastolic CHF compensated Chronic venous insuff is predominant etiology for LE edema Hx prostatectomy for CA Hx subdural hematoma with evacuation Paroxysmal atrial fibrillation Chronic RBBB conduction Diuresis - maintenance dose with thiazide No anticoagulation; DVT prophyl only Optimize antiHTN regimen Spine workup PT/OT Xavier Stevens MD Sep 15, 2020 03:15
[2020-09-15 04:00] VITALS: BP 126/86
--- NOTE | 2020-09-15 07:25 | NUR ---
nurse notes received patient resting comfortably in bed, eating breakfast, no sign of distress, denies pain or discomfort, HL patent, comdom cath in place draining well, on fall aspiration precaution, bed in low position, both side rails 4 P's in progress, call light w/n easy reach ria brunson
--- NOTE | 2020-09-15 07:29 | NUR ---
HAND-OFF: Report given to TIA Lora.
[2020-09-15 08:00] VITALS: BP 126/87
[2020-09-15] MEDS: Triamterene/Hctz 37.5/25 cap ORAL SCH (08:20)
[2020-09-15] MEDS: Metoprolol Succinate XL 25mg tab ORAL SCH (08:20)
[2020-09-15] MEDS: Aspirin EC 81mg tab ORAL SCH (08:20)
[2020-09-15] MEDS: Heparin 5000 units/ml inj SUBQ SCH ×2 (08:21→21:00)
--- NOTE | 2020-09-15 09:05 | General Progress Note ---
Subjective ROS Limited/Unobtainable: No Constitutional: Reports: malaise, weakness HEENT: Reports: no symptoms Cardiovascular: Reports: edema Respiratory: Reports: no symptoms Gastrointestinal/Abdominal: Reports: no symptoms Genitourinary: Reports: no symptoms Neurologic/Psychiatric: Reports: pre-existing deficit Endocrine: Reports: no symptoms Hematologic/Lymphatic: Reports: anemia Allergies: Coded Allergies: No Known Allergies (Unverified , 07/19/20) All Systems: reviewed and negative except above Subjective no complaints. MRi reviewed. no fever or chills. no back pain. decreased LE edema. Objective Last 24 Hour Vital Signs Date Time Temp Pulse Resp B/P (MAP) Pulse Ox O2 Delivery O2 Flow Rate FiO2 09/15/20 08:20 94 126/86 09/15/20 08:00 96.0 88 20 126/87 (100) 98 09/15/20 04:00 98.6 94 21 126/86 (99) 98 09/15/20 00:00 98.5 101 24 117/85 (96) 98 09/14/20 21:00 Room Air 09/14/20 20:00 98.8 78 18 140/88 (105) 97 09/14/20 16:00 97.6 76 18 118/72 (87) 97 09/14/20 12:00 98.4 76 18 122/83 (96) 100 Intake and Output 09/14/20 09/15/20 19:00 07:00 Intake Total 960 ml 360 ml Output Total 800 ml 1200 ml Balance 160 ml -840 ml Intake Oral 960 ml 360 ml Output Urine Total 800 ml 1200 ml # Voids 1 Height (Feet): 5 Height (Inches): 7.00 Weight (Pounds): 200 Objective General Appearance: WD/WN, alert EENT: PERRL/EOMI, normal ENT inspection Neck: normal alignment, normal inspection Cardiovascular: normal rate, regular rhythm Respiratory/Chest: chest wall non-tender, lungs clear, normal breath sounds, no respiratory distress Abdomen: normal bowel sounds, non tender, soft, no organomegaly Edema: 1+ Leg (L), 1+ Leg (R) Neurologic: cattle knocker II-XII grossly normal, alert, oriented x 3 Assessment/Plan Problem List: (1) CHF (congestive heart failure) ICD Codes: I50.9 - Heart failure, unspecified SNOMED: 29654415 (2) CVA (cerebral vascular accident) ICD Codes: I63.9 - Cerebral infarction, unspecified SNOMED: 240881196 (3) Spinal stenosis ICD Codes: M48.00 - Spinal stenosis, site unspecified SNOMED: 27730529 Qualifiers: Qualified Codes: M48.00 - Spinal stenosis, site unspecified (4) Gait instability ICD Codes: R26.81 - Unsteadiness on feet SNOMED: 34590021 (5) Incontinence ICD Codes: R32 - Unspecified urinary incontinence SNOMED: 90826268 Qualifiers: Qualified Codes: R32 - Unspecified urinary incontinence (6) Weakness ICD Codes: R53.1 - Weakness SNOMED: 83198338 (7) Spinal stenosis, cervical region ICD Codes: M48.02 - Spinal stenosis, cervical region SNOMED: 76115483 (8) Spinal stenosis at L4-L5 level ICD Codes: M48.061 - Spinal stenosis, lumbar region without neurogenic claudication SNOMED: 02585419 Status: stable Assessment/Plan: cont current rx prn diuresis pt/ot eval pain rx BPH rx pt/ot dc planning to snf Amador Marin MD Sep 15, 2020 09:05
--- NOTE | 2020-09-15 09:57 | Diagnostic Imaging Report ---
EXAM: XR Chest, 1 View CLINICAL HISTORY: COUGH TECHNIQUE: Frontal view of the chest. COMPARISON: Chest radiograph July 20, 2020 FINDINGS/IMPRESSION: No focal consolidation, pleural effusion, or pneumothorax. No significant interval change. Severe cardiomegaly. Calcified, tortuous aorta. Posterior cervical and thoracolumbar fusion.
[2020-09-15 12:00] VITALS: BP 140/88
[2020-09-15 16:13] VITALS: BP 117/71
--- NOTE | 2020-09-15 17:37 | Cardiology Progress Note ---
Subjective DATE OF SERVICE: Sep 15, 2020 Pain decreased and mobility better. Leg swelling decreasing. BNP is 23 PSA is 0 TSH/B12 normal Objective Last 24 Hour Vital Signs Date Time Temp Pulse Resp B/P (MAP) Pulse Ox O2 Delivery O2 Flow Rate FiO2 09/15/20 16:13 98.4 77 18 117/71 (86) 99 09/15/20 12:00 97.2 75 22 140/88 (105) 98 09/15/20 08:20 94 126/86 09/15/20 08:20 Room Air 09/15/20 08:00 96.0 88 20 126/87 (100) 98 09/15/20 04:00 98.6 94 21 126/86 (99) 98 09/15/20 00:00 98.5 101 24 117/85 (96) 98 09/14/20 21:00 Room Air 09/14/20 20:00 98.8 78 18 140/88 (105) 97 HEENT: normal ENT inspection LUNGS: lungs clear bilaterally CARDIAC: normal rate, regular rhythm, normal S1 and S2, gallop/S4 ABDOMEN: normal bowel sounds, non tender, soft, no organomegaly EXTREMITIES: normal capillary refill, trace edema, other - symmetric weakness of LE's Microbiology Date/Time Source Procedure Growth Status 09/13/20 22:30 Blood Blood Culture - Preliminary NO GROWTH AFTER 24 HOURS Resulted Assessment/Plan Assessment/Plan Recurring falls Discogenic disease Hypertension/HHD Ac/chr diastolic CHF compensated Chronic venous insuff is predominant etiology for LE edema Hx prostatectomy for CA Hx subdural hematoma with evacuation Paroxysmal atrial fibrillation Chronic RBBB conduction Diuresis - now maintenance dose with thiazide No anticoagulation; DVT prophyl only Optimize antiHTN regimen Spine therapy to include PT/OT Xavier Stevens MD Sep 15, 2020 17:37
--- NOTE | 2020-09-15 19:27 | NUR ---
NURSE HAND-OFF: Important Events on Shift:[NO EVENTS] Patient Status: [IMPROVING] Diet: [CARDIAC DIET] Pending Orders: [NONE] Pending Results/Labs:[NONE] Pending MD notification:[NONE] Latest Vital Signs: Temperature 98.2 , Pulse 62 , B/P 109 /69 , Respiratory Rate 20 , O2 SAT 98 , Room Air, O2 Flow Rate . Vital Sign Comment: [STABLE] Latest De Jesus Fall Score: 20 Fall Risk: Low Risk Safety Measures: Call light Within Reach, Bed Alarm Zone 1, Side Rails Side Rails x2, Bed position Low and Locked. Fall Precautions: Patient Fall Education Report given to [TIA WOO]
--- NOTE | 2020-09-15 19:35 | NUR ---
NURSE NOTES: Patient awake in bed, alert and oriented x4, on room air, no SOB noted. IV access on the left AC g. 20. Instructed to use call light. Call light and needs in reach. Bed in lowest, lock engaged and alarm on. Will continue plan of care.
[2020-09-15 20:00] VITALS: BP 117/77
[2020-09-15] MEDS: Tamsulosin 0.4mg cap ORAL SCH (21:07)
[2020-09-16] VITALS: BP 136/78
[2020-09-16 04:00] VITALS: BP 128/78
--- NOTE | 2020-09-16 06:45 | NUR ---
NURSE HAND-OFF: Important Events on Shift: Patient Status: stable Diet: cardiac Pending Orders: Pending Results/Labs: Pending MD notification: Latest Vital Signs: Temperature 97.5 , Pulse 80 , B/P 128 /78 , Respiratory Rate 20 , O2 SAT 95 , Room Air, O2 Flow Rate . Vital Sign Comment: Latest De Jesus Fall Score: 60 Fall Risk: High Risk Safety Measures: Call light Within Reach, Bed Alarm Zone 1, Side Rails Side Rails x2, Bed position Low and Locked. Fall Precautions: Yellow Socks Patient Fall Education
[2020-09-16] MEDS ORDERED: DYAZIDE1 CAP ORAL (07:26)
--- NOTE | 2020-09-16 07:37 | NUR ---
HAND-OFF: Report given to Magdalena.
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
[2020-09-16 08:00] VITALS: BP 114/78
[2020-09-16] MEDS: Triamterene/Hctz 37.5/25 cap ORAL SCH (08:19)
[2020-09-16] MEDS: Metoprolol Succinate XL 25mg tab ORAL SCH (08:19)
[2020-09-16] MEDS: Aspirin EC 81mg tab ORAL SCH (08:19)
[2020-09-16] MEDS: Heparin 5000 units/ml inj SUBQ SCH ×2 (08:19→21:00)
[2020-09-16 12:00] VITALS: BP 118/72
--- NOTE | 2020-09-16 15:23 | NUR ---
NURSE NOTES: AWAITING FOR COVID RESULT. WILL CONT TO MONITOR.
[2020-09-16 16:00] VITALS: BP 112/75
--- NOTE | 2020-09-16 17:18 | NUR ---
*-*DISCHARGE PLANNED*-* PATIENT HAS BEEN ACCEPTED [facility]: [phone] FOR NURSE TO NURSE REPORT ROOM# 201.[facility] SET FOR 6PM [id number] PLACED A CALL TO FAMILY, NO ANSWER, UNABLE TO LEAVE VOICE MESSAGE.
--- NOTE | 2020-09-16 17:44 | NUR ---
NURSE NOTES: reattempted to call family saenz and still no answer. unable to leave a vm. report given to Ladan @ [facility]. personal belongings noted. awaiting for ambulance. will cont to monitor. Addendum: 09/16/20 at 1917 by MOOSE ARAUJO LVN NURSE NOTES: SPOKE WITH [facility] REGARDING CALLING RESULT FOR GIOVANNI @ [facility] [phone]
--- NOTE | 2020-09-16 19:11 | NUR ---
NURSE HAND-OFF: Important Events on Shift:[AWAITING FOR AMBULANCE; ENDORSE ABOUT THE COVID RESULT TO JAIRO] Patient Status: [STABLE] Diet: [CARDIAC] Pending Orders: [] Pending Results/Labs:[] Pending MD notification:[] Latest Vital Signs: Temperature 98.4 , Pulse 86 , B/P 112 /75 , Respiratory Rate 20 , O2 SAT 98 , Room Air, O2 Flow Rate . Vital Sign Comment: [] Latest De Jesus Fall Score: 60 Fall Risk: High Risk Safety Measures: Call light Within Reach, Bed Alarm Zone 2, Side Rails Side Rails x3, Bed position Low and Locked. Fall Precautions: Yellow Socks Patient Fall Education Report given to [MAGDALENA].
[2020-09-16 20:00] VITALS: BP 134/86
--- NOTE | 2020-09-16 20:00 | NUR ---
NURSE NOTES: RECEIVED PATIENT LYING IN BED, AWAKE, ALERT/ORIENTED X3, VERBALLY RESPONSIVE, DENIES PAIN. NO SIGNS AND SYMPTOMS OF ACUTE CARDIO RESPIRATORY DISTRESS/SHORTNESS OF BREATH, DENIES CHEST PAIN. IV INTACT TO LEFT AC/GAUGE 20, NO S/SX OF INFILTRATION, FLUSHING WITHOUT DIFFICULTY, PATIENT DENIES PAIN/DISCOMFORT. ABDOMEN ROUND/FIRM/NON TENDER/AUDIBLE BOWEL SOUNDS, DENIES N/V/D, INCONTINENT OF URINE, INCONTINENT CARE PROVIDED, TOLERATED WELL. SIDE RAILS UP X3/BED IN LOWEST POSITION FOR SAFETY, ENCOURAGED PATIENT TO UTILIZE CALL LIGHT FOR ASSISTANCE, VERBALIZED UNDERSTANDING. DISCHARGE TONIGHT TO [facility] VIA AMBULANCE.
[2020-09-16] MEDS: Tamsulosin 0.4mg cap ORAL SCH (21:00)
--- NOTE | 2020-09-16 22:00 | NUR ---
NURSE NOTES: PATIENT DISCHARGED VIA AMBULANCE, ACCOMPANIED BY 2 ATTENDANTS, IV DC'D, TOLERATED WELL. BELONGINGS GIVEN TO PORK CUTLET MAKER, REPORT PROVIDED TO MARY WEBER, [facility], FROM [facility].
--- NOTE | 2020-09-16 22:15 | NUR ---
NURSE NOTES: ATTEMPTED TO NOTIFY GERMÁN WALLACE, SPOUSE, , OF TRANSFER TO [facility], UNABLE TO LEAVE MESSAGE.
--- NOTE | 2020-09-17 01:39 | Cardiology Progress Note ---
Subjective DATE OF SERVICE: Sep 16, 2020 Pain decreased and mobility better. Leg swelling decreased significantly. BNP is 23 PSA is 0 TSH/B12 normal Objective Last 24 Hour Vital Signs Date Time Temp Pulse Resp B/P (MAP) Pulse Ox O2 Delivery O2 Flow Rate FiO2 09/16/20 20:35 Room Air 09/16/20 20:00 97.4 70 19 134/86 (102) 95 09/16/20 16:00 98.4 86 20 112/75 (87) 98 09/16/20 12:00 98.4 82 20 118/72 (87) 98 09/16/20 09:00 Room Air 09/16/20 08:19 88 114/78 09/16/20 08:00 97.2 88 20 114/78 (90) 96 09/16/20 04:00 97.5 80 20 128/78 (95) 95 HEENT: normal ENT inspection LUNGS: lungs clear bilaterally CARDIAC: normal rate, regular rhythm, normal S1 and S2, gallop/S4 ABDOMEN: normal bowel sounds, non tender, soft, no organomegaly EXTREMITIES: normal capillary refill, trace edema, other - symmetric weakness of LE's Assessment/Plan Assessment/Plan Recurring falls Discogenic disease Hypertension/HHD Ac/chr diastolic CHF compensated Chronic venous insuff is predominant etiology for LE edema Hx prostatectomy for CA Hx subdural hematoma with evacuation Paroxysmal atrial fibrillation Chronic RBBB conduction Diuresis - now maintenance oral dose with thiazide No anticoagulation; DVT prophyl only while in hospital. Continue current antiHTN regimen Spine therapy to include PT/OT at [facility] Xavier Stevens MD Sep 17, 2020 01:39
--- NOTE | 2020-09-17 05:30 | Discharge Summary ---
DATE OF ADMISSION: 09/12/2020 DATE OF DISCHARGE: 09/16/2020 ADMISSION DIAGNOSES: 1. Lower extremity edema. 2. Congestive heart failure exacerbation. 3. Recurrent falls. 4. Degenerative disc disease. 5. Hypertension. 6. History of prostatectomy and prostate cancer. DISCHARGE DIAGNOSES: 1. Lower extremity edema. 2. Congestive heart failure exacerbation. 3. Recurrent falls. 4. Degenerative disc disease. 5. Hypertension. 6. History of prostatectomy and prostate cancer. HOSPITAL COURSE: The patient was admitted with complaints of worsening lower extremity edema and recurrent falls. He received IV Lasix and had significant improvement in his lower extremity edema. Cardiology consultation was obtained. He had a CAT scan and later MRI of the spine that showed a small amount of fluid. Diskitis cannot be ruled out. The patient had no other signs of diskitis including fevers or chills. His blood culture was negative. He will be discharged to [facility] where he is a resident for further therapy. DISCHARGE MEDICATIONS: Please see discharge list for discharge medications. DIET: Regular diet. ACTIVITY: Ad lm. Amador Marin M.D. DR: STEFAN JOB#: [id number] CC:
== END 2020-09-16 22:00 | DRG 293 ==
LOC: EDBD 13:15 → EMR 13:30 → 4E 14:30 → EDBEDREQ 16:26
DX: I11.0 Hypertensive heart disease with heart failure (principal); R26.89 Other abnormalities of gait and mobility; I50.33 Acute on chronic diastolic (congestive) heart failure; M48.02 Spinal stenosis, cervical region; M48.061 Spinal stenosis, lumbar region without neurogenic claudication; Z85.46 Personal history of malignant neoplasm of prostate; R29.6 Repeated falls; Z87.820 Personal history of traumatic brain injury; M51.36 Other intervertebral disc degeneration, lumbar region; I45.10 Unspecified right bundle-branch block; I48.0 Paroxysmal atrial fibrillation
CPT/HCPCS: 36415; 70450; 71045; 72125; 72131; 72148; 80053; 81003; 82550; 82607; 83880; 84153; 84443; 84484; 85025; 85651; 86592; 87040; 87081; 93005; 93970; 99285